=== PATIENT | female | born 1960 | race Caucasian/White ===

== ENCOUNTER 2017-09-16 10:22 | Inpatient (IN) | payer OTHER ==
[~2017-09-16] VITALS: Ht 170.2 cm; Wt 68.0 kg
--- NOTE | 2017-09-16 11:34 | ED GENERAL ADULT ---
History of Present Illness General Chief Complaint: ETOH/Drug Related Complaint Stated Complaint: REQUESTING DETOX FROM DEPRESSION MEDS Source: patient, family Exam Limitations: no limitations Vital Signs & Intake/Output Vital Signs & Intake/Output Vital Signs Date Time Temp Pulse Resp B/P B/P Pulse O2 O2 Flow FiO2 Mean Ox Delivery Rate 09/16 1026 97.2 92 18 180/92 95 Room Air Room Air Allergies Coded Allergies: Penicillins (Severe, ANAPHYLAXIS 08/10/17) Triage Note: PT TO ED " I WANT TO DETOX FROM LEXAPRO AND ALCOHOL". PT TRIED TO STOP ON HER OWN "BUT I TOOK SOME WINE THIS MORNING BECAUSE I WAS SHAKING SO MUCH". PT DENIES ETOH WITHDRAWL SEIZURES IN THE PAST. Triage Nurses Notes Reviewed? yes HPI: Patient has been drinking pretty steadily and wants to stop drinking. Patient also wants to get off of her Lexapro. Vision states that the only reason she is , supposed to help her stop drinking. Patient probably stopped her Lexapro a week ago and is now feeling very anxious and jittery and feels that there is "crawling all over her skin. Patient denies any history of DTs or seizures. Patient states that she has not eaten or drank anything in the past 4 days because of nausea. There is no vomiting. Patient denies any abdominal pain. Patient denies any suicidal or homicidal ideations. Past History Travel History Traveled to [place] past 21 day No Medical History Any Pertinent Medical History? 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 No Review of Systems Review of Systems Constitutional: Reports: no symptoms. EENTM: Reports: no symptoms. Respiratory: Reports: no symptoms. Cardiovascular: Reports: no symptoms. GI: Reports: see HPI, nausea. Genitourinary: Reports: no symptoms. Musculoskeletal: Reports: no symptoms. Skin: Reports: no symptoms. Neurological/Psychological: Reports: see HPI, anxiety. Hematologic/Endocrine: Reports: no symptoms. Immunologic/Allergic: Reports: no symptoms. All Other Systems: Reviewed and Negative Physical Exam Physical Exam General Appearance: well developed/nourished, alert, awake, anxious, moderate distress Head: atraumatic, normal appearance Eyes: Bilateral: PERRL, EOMI. Ears, Nose, Throat: normal pharynx, normal ENT inspection, hearing grossly normal Neck: normal inspection, supple, full range of motion Respiratory: normal breath sounds, chest non-tender, no respiratory distress, lungs clear Cardiovascular: regular rate/rhythm, normal peripheral pulses Gastrointestinal: normal bowel sounds, soft, non-tender, no organomegaly Back: normal inspection, normal range of motion Extremities: normal inspection, normal capillary refill, normal range of motion, no edema Neurologic/Psych: no motor/sensory deficits, awake, alert, oriented x 3, normal gait, normal mood/affect Skin: intact, normal color, warm/dry Lymphatic: no anterior cervical gaviota Core Measures ACS in differential dx? No CVA/TIA Diagnosis: No Sepsis Present: No Sepsis Focused Exam Completed? No Progress Differential Diagnoses I considered the following diagnoses in my evaluation of the patient: [ALCOHOL DEPENDENCY WITH WITHDRAWAL, ELECTROLYTE ABNORMALITY, ] Plan of Care: Orders Procedure Date/time Status Regular Diet 09/16 D Active CIWA 09/16 1130 Active ETHANOL 09/16 1130 Complete COMPREHENSIVE METABOLIC PANEL 09/16 1130 Complete CBC WITHOUT DIFFERENTIAL 09/16 1130 Complete URINE DRUG SCREEN FOR ER ONLY 09/16 1040 Complete Current Medications Sig/Chetna Start time Last Medication Dose Stop Time Status Admin Lorazepam 2 MG ONE ONE 09/16 1415 UNVr (Ativan) 09/16 1416 Lorazepam 2 MG ONCE ONE 09/16 1415 UNVr (Ativan) 09/16 1416 Gabapentin 300 MG Q8 09/16 1400 UNVr 09/16 (Neurontin) 1400 Clonidine 0.1 MG TID PRN 09/16 1130 UNVr (Catapres) Cyanocobalamin/ 1 BAG ONCE ONE 09/16 1130 AC 09/16 Thiamine/Pyridoxine 09/16 1929 1246 (Vitamin in I.V.) Dextrose/Water 1,000 ML (D5W 1000) Nicotine 2 MG Q2P PRN 09/16 1130 UNVr (Nicotine) Laboratory Tests 09/16/17 1202: Anion Gap 18 H, Estimated GFR > 60, BUN/Creatinine Ratio 14.3, Glucose 114 H, Calcium 9.5, Total Bilirubin 1.0, AST 243 H, ALT 105 H, Alkaline Phosphatase 194 H, Total Protein 7.8, Albumin 4.4, Globulin 3.4, Albumin/Globulin Ratio 1.3 , CBC w Diff NO MAN DIFF REQ, RBC 4.76, MCV 96.8, MCH 32.4 H, RDW 14.0, MPV 8.0 , Gran % 74.8, Lymphocytes % 19.0 L, Monocytes % 5.5, Eosinophils % 0.2, Basophils % 0.5, Absolute Granulocytes 8.4 H, Absolute Lymphocytes 2.1, Absolute Monocytes 0.6, Absolute Eosinophils 0, Absolute Basophils 0.1, PUBS MCHC 33.5, Serum Alcohol 67.0 09/16/17 1045: Urine Opiates Screen < 100.00, Methadone Screen 89, Barbiturate Screen < 60, Ur Phencyclidine Scrn < 6.00, Amphetamines Screen 118, U Benzodiazepines Scrn < 85, Urine Cocaine Screen < 50, Urine Cannabis Screen 6.00 Initial ED EKG: none Departure Departure Disposition: STILL A PATIENT Condition: Guarded Clinical Impression Primary Impression: Alcohol dependency Referrals: [facility],Minerva Rosado (PCP/Family) Departure Forms: Customer Survey General Discharge Information Admission Note Spoke With: Francine Kearney MD Documentation of Exam: Documentation of any treatments & extenuating circumstances including Concerns Regarding Discharge (functional status, medication knowledge or non-compliance, living conditions, etc.) that warrant an admission rather than observation: [ ATIVAN PER CIWA, ] Alcohol Withdrawl Admission ED Alcohol Detox Admission d/t: CIWA Score >15 Critical Care Note Critical Care Note Critical Care Time: non-applicable
[2017-09-16 12:19] LABS: ABSOLUTE BASOPHIL COUNT 0.1 /CUMM (0.0-0.2); ABSOLUTE EOSINOPHIL COUNT 0 /CUMM (0.0-0.7); ABSOLUTE GRANULOCYTE CT 8.4 /CUMM (1.4-6.5); ABSOLUTE LYMPH COUNT 2.1 /CUMM (1.2-3.4); ABSOLUTE MONOCYTE COUNT 0.6 /CUMM (0.10-0.60); BASOPHIL % 0.5 % (0.0-2.0); EOSINOPHIL % 0.2 % (0-5); GRANULOCYTE % 74.8 % (42.2-75.2); MEAN CORPUSCULAR HGB 32.4 PG (27.0-31.0); MEAN CORPUSCULAR HGB CONC 33.5 G/DL (33.0-37.0); MEAN CORPUSCULAR VOLUME 96.8 FL (81.0-99.0); PLATELET COUNT 261 /CUMM (130-400); RED BLOOD CELL CT 4.76 /CUMM (4.20-5.40); WHITE BLOOD CELL COUNT 11.2 /CUMM (4.8-10.8)
--- NOTE | 2017-09-16 14:47 | History & Physical ---
Sha ROBERTO,[facility] 09/16/17 1446: General Information and HPI MD Statement: I have seen and personally examined KANDY FRAZIER and documented this H&P. The patient is a 56 year old F who presented with a patient stated chief complaint of [alcohol detox]. Source of Information: patient, EMS Exam Limitations: no limitations History of Present Illness: Patient is a 56-year-old female with past medical history significant for hypertension, HOCM (follows ), urinary incontinence, varicose veins, HOCM presented to [facility] requesting alcohol detox this morning. Patient started drinking since the age of 17 years and never had any alcohol withdrawals are hospitalizations in the past. She only stopped drinking during her and her usual drinking consists of vodka around 16 ounces per day. Her last drink yesterday morning (wine). She was started on Lexapro for depression/ anxiety 3 months ago by her primary care physician. She stopped taking it for the past 5 days and restarted today morning. She started feeling loopy and came to the ER for detoxification. She often feels guilty about her drinking, drugs to control her drinking, annoyed by criticism about her drinking. (CAGE positive) PMH significant for HOCM on bystolic, follows . She reportedly had elevated liver function tests during her routine workup by her primary care physician but never evaluated further with hepatitis panel or any alcohol related conditions like steatosis. Patient is very drowsy during the encounter. Her mother is alcoholic Socially she smokes around half pack per day for the past 40 years. Denies any drug abuse Surgically she had left hip replacement due to osteoarthritis 2 years ago Allergies/Medications Allergies: Coded Allergies: Penicillins (Severe, ANAPHYLAXIS 08/10/17) Home Med list Nebivolol HCl (Bystolic) 5 MG TABLET 1 TAB PO DAILY hypertension (Reported) Oxybutynin Chloride (Oxybutynin Chloride ER) 10 MG TAB.ER.24 1 TAB PO DAILY urinary incontinence (Reported) Compliance With Home Meds: UNKNOWN Past History Travel History Traveled to [place] past 21 day No Medical History Neurological: NONE EENT: NONE Cardiovascular: hypertension Respiratory: NONE Gastrointestinal: NONE Hepatic: NONE Renal: NONE Musculoskeletal: right rib fracture Psychiatric: depression Endocrine: NONE Blood Disorders: NONE Cancer(s): NONE 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 Ambulation: independent IADLs Independent: shopping, housework, finances, food prep, telephone, transportation , medication admin. Review of Systems Review of Systems Constitutional: Reports: see HPI. EENTM: Reports: see HPI. Comments ROS negative except above Exam & Diagnostic Data Last 24 Hrs of Vital Signs/I&O Vital Signs Date Time Temp Pulse Resp B/P B/P Pulse O2 O2 Flow FiO2 Mean Ox Delivery Rate 09/16 1431 98.6 82 18 180/90 96 Room Air 09/16 1026 97.2 92 18 180/92 95 Room Air Room Air Intake & Output 09/16 1600 09/16 0800 09/16 0000 Intake Total Output Total Balance Patient 68.039 kg Weight Weight Reported by Patient Measurement Method Physical Exam General Appearance Alert, Oriented X3, drowsy Skin No Rashes, No Breakdown Skin Temp/Moisture Exam: Warm/Dry HEENT Atraumatic, PERRLA, EOMI Neck Supple, No JVD Cardiovascular Normal S1, Normal S2 Lungs Clear to Auscultation, Normal Air Movement Abdomen Normal Bowel Sounds, No Tenderness, distended, mild hepatomegaly Neurological Normal Gait, Normal Speech Extremities No Clubbing, No Cyanosis, No Edema Vascular Pulses Symmetrical Last 24 Hrs of Labs/Howie: Laboratory Tests 09/16/17 1202: Anion Gap 18 H, Estimated GFR > 60, BUN/Creatinine Ratio 14.3, Glucose 114 H, Calcium 9.5, Total Bilirubin 1.0, AST 243 H, ALT 105 H, Alkaline Phosphatase 194 H, Total Protein 7.8, Albumin 4.4, Globulin 3.4, Albumin/Globulin Ratio 1.3 , CBC w Diff NO MAN DIFF REQ, RBC 4.76, MCV 96.8, MCH 32.4 H, RDW 14.0, MPV 8.0 , Gran % 74.8, Lymphocytes % 19.0 L, Monocytes % 5.5, Eosinophils % 0.2, Basophils % 0.5, Absolute Granulocytes 8.4 H, Absolute Lymphocytes 2.1, Absolute Monocytes 0.6, Absolute Eosinophils 0, Absolute Basophils 0.1, PUBS MCHC 33.5, Serum Alcohol 67.0 09/16/17 1045: Urine Opiates Screen < 100.00, Methadone Screen 89, Barbiturate Screen < 60, Ur Phencyclidine Scrn < 6.00, Amphetamines Screen 118, U Benzodiazepines Scrn < 85, Urine Cocaine Screen < 50, Urine Cannabis Screen 6.00 Assessment/Plan Assessment: Patient is a 56-year-old female with significant alcohol history for the past 40 years, active smoker, presented to [place] requesting alcohol detoxification. She never had history of seizures in the past/never admitted for alcohol detoxification. Vital signs at admission are afebrile, heart rate 90, blood pressure 180/90 mmHg , saturating 95% on room air. Physical examination is unremarkable except for abdominal distention with mild hepatomegaly. Tremors present. Labs - white count of 11.2, H&H 15/46, MCV 96. Sodium 142, potassium 3.8, anion gap 18, AST/ALT 243/105 (2 wish to 1), alkaline phosphatase 194. Augmentin 4.4. Toxic screen shows serum alcohol level of 67. UA is pending Patient is very drowsy - CMR need to be confirmed Admitted to general medicine floor Alcohol detoxification CIWA protocol with scheduled and as needed ativan dosing. Clonidine for high blood pressure during withdrawal. Folic acid, multivitamin, thiamine. Hepatitis panel, social and psychiatric consult. Transaminitis AST/ALT induced 1 ratio secondary to significant alcohol consumption. We will trend the LFTs. Right upper quadrant ultrasound to rule out hepatic steatosis. Nothing by mouth from midnight. History of HOCM and HTN Patient was on Bystolic at home, we will continue that for now. History of urinary incontinence Cotinue oxybutynin 10mg ER daily. DVT prophylaxis Subcutaneous Lovenox CODE STATUS Full code As Ranked By This Provider Problem List: 1. Alcohol dependency Core Measures/Misc (05/14) Acute Coronary Syndrome ACS Diagnosis: No Congestive Heart Failure Congestive Heart Failure Diagnosis No Cerebrovascular Accident CVA/TIA Diagnosis: No VTE (View Protocol) VTE Risk Factors Acute Medical Illness No Mechanical VTE Prophylaxis d/t N/A MechProphylax Ordered No VTE Pharm Prophylaxis d/t NA PharmProphylax ordered Sepsis (View protocol) Sepsis Present: No Resident Review Statement Resident Statement: examined this patient, discussed with hospitality internship, agreed with hospitality internship, discussed with family, reviewed EMR data (avail), discussed with nursing , discussed with case mgmt, reviewed images, amended to note Francine Kearney 09/16/17 1515: Attending MD Review Statement Attending Statement Attending MD Statement: examined this patient, discuss w/resident/PA/WELDER HELPER, agreed w/resident/PA/WELDER HELPER, discussed with family, reviewed EMR data (avail), discussed with nursing, discussed with case mgmt, reviewed images, amended to note Attending Assessment/Plan: 56 o/f with pmh of alcohol abuse, hypertension comes with altered mental status 2/2 delirium related to alcohol withdrawal and admitted to inpatient medical services for alcohol withdrawal impending delirium tremens with moderate transaminits. Patient NIKKY 67 with tremors, BP in elevation range with uncontrolled hypertension, tremors. Patient started on CIWA protocol, ativan as per CIWA, thiamine, folic acid, IVF, bp control. Closely monitor hemodynamics. Obtain previous records. and [facility] eval. gi/dvt prophylaxis full code.
[2017-09-16 16:10] VITALS: BP 160/90
[2017-09-16 17:33] VITALS: BP 180/92
[2017-09-16 17:51] VITALS: BP 150/90
[2017-09-16] MEDS ORDERED: BYSTOLIC5 M1 PO (21:47)
[2017-09-16 22:00] VITALS: BP 150/90
[2017-09-16 22:15] VITALS: BP 150/90
[2017-09-17] VITALS (7 sets, daily range): BP systolic 120–140; BP diastolic 60–80
--- NOTE | 2017-09-17 09:05 | ULTRASOUND REPORT ---
EXAMINATION: US ABDOMEN LIMITED CLINICAL INFORMATION: Right upper quadrant pain. COMPARISON: None TECHNIQUE: Real-time imaging of the right upper quadrant abdominal viscera. FINDINGS: PANCREAS: Normal. LIVER: The liver is enlarged measuring 19.9 cm in length.. The liver demonstrates normal size, contour and increased echogenicity. No focal lesion or intrahepatic biliary duct dilatation. GALLBLADDER: Normal. The gallbladder is physiologically distended without evidence of stones, sludge, polyps, wall thickening or pericholecystic fluid. COMMON BILE DUCT: Normal in caliber measuring 0.5 cm in diameter. RIGHT KIDNEY: Normal. No hydronephrosis. No renal calculi or focal parenchymal lesions. The kidney measures 11.4 cm in maximum dimension. FREE FLUID: None. IMPRESSION: Echogenic significantly enlarged liver but no focal lesion or intrahepatic ductal dilatation. Findings could be secondary to hepatitis or fatty infiltration. Unremarkable visualized right kidney, CBD, gallbladder and the pancreas.
--- NOTE | 2017-09-17 09:55 | PN- Housestaff ---
Zulay ROBERTO,Corazon 09/17/17 0955: Subjective Follow-up For: ALCOHOL DETOX TRANSAMINITIS HTN Subjective: PATIENT IS STILL DROWSY BUT IS APPROPRIATE. DOES NOT COMPLAIN OF ABDOMINAL PAIN OR CHEST PAIN. NO SOB. VITALS STABLE 92% ON RA. Review of Systems Constitutional: Reports: no symptoms. Neurological/Psychological: Reports: anxiety, depressed. Objective Last 24 Hrs of Vital Signs/I&O Vital Signs Date Time Temp Pulse Resp B/P B/P Pulse O2 O2 Flow FiO2 Mean Ox Delivery Rate 09/17 0954 97.4 73 20 120/60 92 Room Air 09/17 0907 97.6 89 20 120/80 09/17 0720 97.6 89 20 120/80 94 Room Air 09/17 0612 89 120/80 09/17 0600 97.6 89 20 120/80 09/17 0240 97.8 89 20 124/80 95 Room Air 09/17 0200 97.8 89 20 124/80 09/16 2303 85 150/90 09/16 2301 85 150/90 09/16 2215 98.2 85 20 150/90 92 Room Air 09/16 2200 98.2 85 20 150/90 09/16 1751 98.5 86 20 150/90 91 Room Air 09/16 1733 97.9 96 18 180/92 09/16 1732 97.9 96 18 180/92 96 Room Air 09/16 1730 97.9 96 18 180/92 09/16 1610 98.6 96 18 160/90 09/16 1608 98.6 96 18 160/90 96 Room Air 09/16 1431 98.6 82 18 180/90 96 Room Air Intake & Output 09/17 1600 09/17 0800 09/17 0000 Intake Total 70 1515 Output Total 250 Balance 70 1265 Intake, IV 10 1000 Intake, Oral 60 515 Output, Urine 250 Patient 150 lb Weight Weight Reported by Patient Measurement Method Physical Exam General Appearance: Alert, Oriented X3, Cooperative, No Acute Distress Skin: No Rashes Skin Temp/Moisture Exam: Warm/Dry HEENT: Atraumatic, PERRLA, EOMI, Mucous Membr. moist/pink Cardiovascular: Regular Rate, Normal S1, Normal S2 Lungs: Clear to Auscultation, Normal Air Movement Abdomen: Normal Bowel Sounds, Soft, No Hepatospenomegaly, No Masses, SOME DISTENSION AND VERY MILD PAIN ON PALPATION UPPER RIGHT QUADRANT Neurological: Normal Speech Current Medications: Current Medications Sig/Chetna Start time Last Medication Dose Route Stop Time Status Admin Clonidine 0.1 MG Q8 09/17 1400 AC PO Clonidine 0.1 MG Q6 09/16 1928 DC 09/17 PO 0612 Clonidine 0 .STK-MED ONE 09/16 1724 DC PO Clonidine 0.1 MG TID PRN 09/16 1130 DC 09/16 PO 1730 Cyanocobalamin/ 1 BAG ONCE ONE 09/16 1500 CAN Thiamine/Pyridoxine IV 09/16 2259 Dextrose/Water 1,000 ML Cyanocobalamin/ 1 BAG ONCE ONE 09/16 1130 DC 09/16 Thiamine/Pyridoxine IV 09/16 1929 1246 Dextrose/Water 1,000 ML Enoxaparin Sodium 0 .STK-MED ONE 09/16 1724 DC SC Enoxaparin Sodium 40 MG DAILY 09/16 1450 AC 09/17 SC 0907 Folic Acid 1 MG DAILY 09/17 1000 AC 09/17 PO 0907 Folic Acid 1 MG DAILY 09/16 1527 DC PO Gabapentin 300 MG Q8 09/16 1400 AC 09/17 PO 0612 Gabapentin 0 .STK-MED ONE 09/16 1311 DC PO Gabapentin 300 MG ONCE ONE 09/16 1300 DC 09/16 PO 09/16 1301 1310 Influenza Virus 0.5 ML ONCE ONE 09/16 1815 DC Vaccine IM 09/16 1816 Lorazepam 1.5 MG Q6H 09/17 1500 DC PO Lorazepam 1 MG Q6H 09/17 1500 AC PO Lorazepam See Dose Q1P PRN 09/16 1500 AC Insts (1) IV Lorazepam 2 MG Q6H 09/16 1500 DC 09/17 PO 0909 Lorazepam 0 .STK-MED ONE 09/16 1417 DC .ROUTE Lorazepam 0 .STK-MED ONE 09/16 1416 DC PO Lorazepam 2 MG ONE ONE 09/16 1415 DC 09/16 IV 09/16 1416 1432 Lorazepam 2 MG ONCE ONE 09/16 1415 DC 09/16 PO 09/16 1416 1432 Magnesium Oxide 400 MG BID 09/17 1233 UNVr PO 09/17 220 Multivitamins 1 TAB DAILY 09/17 1000 AC 09/17 PO 0908 Nebivolol 5 MG DAILY 09/16 2200 AC 09/17 PO 0907 Nicotine 2 MG Q2P PRN 09/16 1130 AC PO Oxybutynin Chloride 10 MG DAILY 09/17 1232 UNVr PO Potassium Chloride 40 MEQ ONCE ONE 09/17 1245 UNVr PO 09/17 1246 Thiamine HCl 100 MG DAILY 09/17 1000 AC 09/17 PO 0908 Dose Instructions: (1)Lorazepam: See admin criteria Last 24 Hrs of Lab/Howie Results Last 24 Hrs of Labs/Mics: Laboratory Tests 09/17/17 0818: Anion Gap 13, Estimated GFR > 60, BUN/Creatinine Ratio 13.8, Phosphorus 3.6, Magnesium 1.7, Total Bilirubin 1.7 H, Direct Bilirubin 0.7 H, AST 144 H, ALT 75 H, Alkaline Phosphatase 156 H, Total Protein 6.6, Albumin 3.6, Hepatitis A IgM Ab NONREACTIVE, Hep Bs Antigen NONREACTIVE, Hep B Core IgM Ab Conf NONREACTIVE, Hepatitis C Antibody NONREACTIVE Orders CIWA Score (last 24 hrs): 3 FOR HEADACHES AND TREMORS Assessment/Plan Assessment: Patient is a 56-year-old female with significant alcohol history for the past 40 years, active smoker, hypertension, HOCM (follows ), urinary incontinence, varicose veins, presented to [facility] requesting alcohol detox. She never had history of seizures in the past/never admitted for alcohol detoxification. Vital signs at admission are afebrile, heart rate 90, blood pressure 180/90 mmHg , saturating 95% on room air. Physical examination is unremarkable except for abdominal distention with mild hepatomegaly. Tremors present. Labs - white count of 11.2, H&H 15/46, MCV 96. Sodium 142, potassium 3.8, anion gap 18, AST/ALT 243/105 (2 wish to 1), alkaline phosphatase 194. Augmentin 4.4. Toxic screen shows serum alcohol level of 67. UA is pending Admitted to general medicine floor FOR: Alcohol detoxification CIWA protocol with scheduled and as needed ativan dosing. Clonidine for high blood pressure during withdrawal. Folic acid, multivitamin, thiamine. Hepatitis panel, social and psychiatric consult. -CIWA 3 TODAY FOR HEADACHES AND TREMORS -NOTE THAT CLONIDINE MAY MASK SYMPTOMS OF WITHDRAWAL -CONTINUE ATIVAN DOSING CIWA PROTOCOL AND DECREASE 1.5MG Q6 TODAY AT 3PM TO 1.0MG Q6 -FOLIC ACID, THIAMINE, MULTIVIT, VIT B Transaminitis AST/ALT induced 1 ratio secondary to significant alcohol consumption. We will trend the LFTs. Right upper quadrant ultrasound SHOWED SIGNIFICAANTLY ENLARGED LIVER BUT NO FOCAL LESION OR INTRAHEPATIC DUCTAL DILATATION- EVIDENCE OF HEPATATIS OR FATTY INFILTRATION. LFTS ARE RESOLVING AST 144 DOWN FROM 243 ALT 75 DOWN FROM 105. AP 156 DOWN FROM 194. History of HOCM and HTN Patient was on Bystolic at home, we will continue that for now. History of urinary incontinence Cotinue oxybutynin 10mg ER daily. HYPERKALEMIA, MAGNESIUM LEVELS REPLETE, 3.3 KEEP MG NEAR 2 DVT prophylaxis Subcutaneous Lovenox CODE STATUS Full code Problem List: 1. Alcohol dependency Pain Ratin Pain Location: RIGHT UPPER QUANDRANT ON PALPATION Pain Goal: Remain pain free Pain Plan: PRN Tomorrow's Labs & Rationales: CBC BEP Francine Kearney 09/17/17 0956: Attending MD Review Statement Attending Statement Attending MD Statement: examined this patient, discuss w/resident/PA/DISTRIBUTION OPERATION SUPERVISOR, agreed w/resident/PA/DISTRIBUTION OPERATION SUPERVISOR, discussed with family, reviewed EMR data (avail), discussed with nursing, discussed with case mgmt, reviewed images, amended to note Attending Assessment/Plan: 56 o/f with pmh of alcohol abuse, hypertension comes with altered mental status 2/2 delirium related to alcohol withdrawal and admitted to inpatient medical services for alcohol withdrawal impending delirium tremens with moderate transaminits. Patient NIKKY 67 with tremors, BP in elevation range with uncontrolled hypertension, tremors. Patient seen/examined bedside. Patient is sleeping comfortably, not in acute distress. Continue on CIWA protocol, ativan as per CIWA, thiamine, folic acid, IVF, bp control. Closely monitor hemodynamics. f/u previous records. and [facility] eval. gi/dvt prophylaxis full code.
--- NOTE | 2017-09-17 10:31 | IP INCIDENTAL NOTE PSYCH ---
Incidental Note Notation: 56 year old female presenting to the ED with alcohol withdrawal, history of depression, self discontinued Lexapro about a week ago because she felt it should be helping with her alcohol withdrawal and it was not. Discussed with Dr. Biswas of the medical team. Consult requested place by for attending Dr Escamilla. Consult question: Please make record recommendations for depression medications, assess underlying contribution to drinking, outpatient treatment reccs? Per team, this is nonurgent and can wait till Monday morning to address, at this time patient is still undergoing acute withdrawal and not amenable to full interview, quite sedated today. Chart, labs and plan reviewed with summer intern. -cont CIWA, ativan, vs, MVI, folate, thiamine as you are doing -will cont to hold lexapro at this time since self-dc over a week ago -no SI endorsed, if presents, please place sitter with pt for safety -please add TSH/reflex T4, B12, RPR/VDRL to labs -Psychiatry C/L team to see pt on Monday -plan d/w medical team -mike call with questions, concerns
[2017-09-17] MEDS ORDERED: OXYBUTYNIN CHLO10 M1 PO (12:31)
[2017-09-18] VITALS (14 sets, daily range): BP systolic 110–180; BP diastolic 68–102
[2017-09-18 10:26] LABS: ABSOLUTE BASOPHIL COUNT 0 /CUMM (0.0-0.2); ABSOLUTE EOSINOPHIL COUNT 0.1 /CUMM (0.0-0.7); ABSOLUTE GRANULOCYTE CT 3.9 /CUMM (1.4-6.5); ABSOLUTE LYMPH COUNT 2.5 /CUMM (1.2-3.4); ABSOLUTE MONOCYTE COUNT 0.4 /CUMM (0.10-0.60); BASOPHIL % 0.4 % (0.0-2.0); EOSINOPHIL % 1.8 % (0-5); GRANULOCYTE % 55.8 % (42.2-75.2); MEAN CORPUSCULAR HGB 33.1 PG (27.0-31.0); MEAN CORPUSCULAR HGB CONC 33.9 G/DL (33.0-37.0); MEAN CORPUSCULAR VOLUME 97.7 FL (81.0-99.0); MEAN PLATELET VOLUME 8.8 FL (7.4-10.4); PLATELET COUNT 163 /CUMM (130-400); RBC DISTRIBUTION WIDTH 13.9 % (11.5-14.5); RED BLOOD CELL CT 3.89 /CUMM (4.20-5.40); WHITE BLOOD CELL COUNT 7.1 /CUMM (4.8-10.8)
--- NOTE | 2017-09-18 11:17 | PN- Housestaff ---
Zulay ROBERTO,Corazon 09/18/17 1116: Subjective Follow-up For: ALCOHOL DETOX TRANSAMINITIS HTN Subjective: overnight patient had CIWA of 2 for visual and auditory hallucinations. She states that she thinks the bed looks like two shoulders next to her. she states that she is still lightheaded, seeing double, and has a headache. she admits to diaphoresis as well. Also states she has a little bit of diarrhea. Review of Systems Constitutional: Reports: diaphoresis, weakness. EENTM: Reports: double vision. Cardiovascular: Reports: no symptoms. Gastrointestinal: Reports: diarrhea. Musculoskeletal: Reports: no symptoms. Neurological/Psychological: Reports: see HPI, cognitive dysfunction, headache. Objective Last 24 Hrs of Vital Signs/I&O Vital Signs Date Time Temp Pulse Resp B/P B/P Pulse O2 O2 Flow FiO2 Mean Ox Delivery Rate 09/18 1001 98.1 68 20 118/68 09/18 0647 98.1 68 20 118/68 92 Room Air 09/18 0552 68 158/78 09/18 0545 98.7 68 20 158/78 09/18 0200 98.5 76 20 110/70 94 Room Air 09/17 2228 75 132/80 09/17 2200 96.9 75 20 132/80 92 Room Air 09/17 1428 98.5 81 20 140/80 09/17 1357 98.5 81 20 140/80 93 Room Air Intake & Output 09/18 1600 09/18 0800 09/18 0000 Intake Total 100 200 Output Total Balance 100 200 Intake, Oral 100 200 Physical Exam General Appearance: Alert, Oriented X3, Cooperative, No Acute Distress Skin: No Rashes, No Breakdown, No Significant Lesion HEENT: Atraumatic, PERRLA, EOMI Neck: Supple, No JVD Cardiovascular: Regular Rate, Normal S1, Normal S2, No Murmurs Lungs: Clear to Auscultation Abdomen: Normal Bowel Sounds, Soft, No Tenderness Neurological: Normal Speech, Strength at 5/5 X4 Ext, Normal Tone, Sensation Intact, Cranial Nerves 3-12 NL Extremities: No Clubbing, No Edema, Normal Pulses, No Tenderness/Swelling Vascular: Normal Pulses Current Medications: Current Medications Sig/Chetna Start time Last Medication Dose Route Stop Time Status Admin Clonidine 0.1 MG Q12P PRN 09/18 1000 AC PO Clonidine 0.1 MG Q8 09/17 1400 DC 09/18 PO 0552 Enoxaparin Sodium 40 MG DAILY 09/16 1450 AC 09/18 SC 1002 Folic Acid 1 MG DAILY 09/17 1000 AC 09/18 PO 1001 Gabapentin 300 MG Q8 09/16 1400 AC 09/18 PO 0551 Lorazepam 1 MG BID 09/18 2199 UNVr PO Lorazepam 1 MG Q6H 09/17 1500 DC 09/18 PO 1000 Lorazepam See Dose Q1P PRN 09/16 1500 AC 09/18 Insts (1) IV 0551 Magnesium Oxide 400 MG BID 09/17 1233 DC 09/17 PO 09/17 2200 2229 Multivitamins 1 TAB DAILY 09/17 1000 AC 09/18 PO 1004 Nebivolol 5 MG DAILY 09/16 2200 AC 09/18 PO 1001 Nicotine 2 MG Q2P PRN 09/16 1130 AC 09/18 PO 1002 Oxybutynin Chloride 5 MG BID 09/17 1232 AC 09/18 PO 1001 Potassium Chloride 40 MEQ ONCE ONE 09/17 1245 DC 09/17 PO 09/17 1246 1428 Thiamine HCl 100 MG DAILY 09/17 1000 AC 09/18 PO 1001 Dose Instructions: (1)Lorazepam: See admin criteria Last 24 Hrs of Lab/Howie Results Last 24 Hrs of Labs/Mics: Laboratory Tests 09/18/17 0952: Total Bilirubin 1.2, Direct Bilirubin 0.5 H, AST 118 H, ALT 72 H, Alkaline Phosphatase 153 H, Total Protein 6.4, Albumin 3.6 09/18/17 0805: Anion Gap 11, Estimated GFR > 60, BUN/Creatinine Ratio 21.7, Phosphorus 3.4, Magnesium 1.6, CBC w Diff NO MAN DIFF REQ, RBC 3.89 L, MCV 97.7, MCH 33.1 H, RDW 13.9, MPV 8.8, Gran % 55.8, Lymphocytes % 36.1, Monocytes % 5.9, Eosinophils % 1.8, Basophils % 0.4, Absolute Granulocytes 3.9, Absolute Lymphocytes 2.5, Absolute Monocytes 0.4, Absolute Eosinophils 0.1, Absolute Basophils 0, PUBS MCHC 33.9 Orders CIWA Score (last 24 hrs): 2 Assessment/Plan Assessment: Patient is a 56-year-old female with significant alcohol history for the past 40 years, active smoker, hypertension, HOCM (follows ), urinary incontinence, varicose veins, presented to [facility] requesting alcohol detox. She never had history of seizures in the past/never admitted for alcohol detoxification. Vital signs at admission are afebrile, heart rate 90, blood pressure 180/90 mmHg , saturating 95% on room air. Physical examination is unremarkable except for abdominal distention with mild hepatomegaly. Tremors present. Labs - white count of 11.2, H&H 15/46, MCV 96. Sodium 142, potassium 3.8, anion gap 18, AST/ALT 243/105 (2 wish to 1), alkaline phosphatase 194. Augmentin 4.4. Toxic screen shows serum alcohol level of 67. UA is pending Admitted to general medicine floor FOR: Alcohol detoxification CIWA protocol with scheduled and as needed ativan dosing. Clonidine for high blood pressure during withdrawal. -CIWA 2 TODAY FOR AUDITORY AND VISUAL HALLUCINATIONS -NOTE THAT CLONIDINE MAY MASK SYMPTOMS OF WITHDRAWAL -CONTINUE ATIVAN DOSING CIWA PROTOCOL AND DECREASE 1MG Q6 TODAY TO 1.0MG Q12 -FOLIC ACID, THIAMINE, MULTIVIT, VIT B -SOCIAL WORK AND PSYCHIATRY TODAY FOR OUTPATIENT PLACEMENT. Transaminitis AST/ALT induced 1 ratio secondary to significant alcohol consumption. We will trend the LFTs. Right upper quadrant ultrasound SHOWED SIGNIFICAANTLY ENLARGED LIVER BUT NO FOCAL LESION OR INTRAHEPATIC DUCTAL DILATATION- EVIDENCE OF HEPATATIS OR FATTY INFILTRATION. NEGATIVE HEPATITIS PANEL LFT ELEVATIONS ARE RESOLVING History of HOCM and HTN Patient was on Bystolic at home, we will continue that for now. History of urinary incontinence Cotinue oxybutynin 10mg ER daily. HYPERKALEMIA, HYPOMAGNESEMIA REPLETE NEEDED TO KEEP K AT LEAST 4 AND MG AT LEAST 2 DVT prophylaxis Subcutaneous Lovenox CODE STATUS Full code Problem List: 1. Alcohol dependency Pain Ratin Pain Location: na Pain Goal: Remain pain free Pain Plan: prn Tomorrow's Labs & Rationales: bep cbc Francine Kearney 09/18/17 1332: Attending MD Review Statement Attending Statement Attending MD Statement: examined this patient, discuss w/resident/PA/UNDERWATER WELDER, agreed w/resident/PA/UNDERWATER WELDER, discussed with family, reviewed EMR data (avail), discussed with nursing, discussed with case mgmt, reviewed images, amended to note Attending Assessment/Plan: 56 o/f with pmh of alcohol abuse, hypertension comes with altered mental status 2/2 delirium related to alcohol withdrawal and admitted to inpatient medical services for alcohol withdrawal impending delirium tremens with moderate transaminits. Patient NIKKY 67 with tremors, BP in elevation range with uncontrolled hypertension, tremors. Patient seen/examined bedside. Patient is sleeping comfortably, not in acute distress. Continue on CIWA protocol, taper ativan as per CIWA, thiamine, folic acid, IVF, bp control. Closely monitor hemodynamics. f/u previous records. and [facility] eval pending. gi/dvt prophylaxis full code.
--- NOTE | 2017-09-18 17:21 | Cons- Psychiatry ---
See Addendum Psychiatric Consult Date of Consult: 09/18/17 Reason for Consult: alcohol withdrawal History of Present Illness: 56 F BIB spouse, Donovan, 09/16/17 @ 1028 with a CC of wanting "to detox from alcohol and Lexipro." She had told her PCP that she did not want to take benzodiazepines, and agreed to taper off alcohol and use Lexapro 10 mg PO daily for her anxiety, which she has since stopped unilaterally. She reports that she stopped drinking 22 years ago when her son was born, but has not since that time. She denies any history of seizure or delirium tremens, but her spouse reports that when she was drinking at her father's house on Monday, family had called him to report that she was seeing things. Allergies: Coded Allergies: Penicillins (Severe, ANAPHYLAXIS 08/10/17) Current Medications: Current Medications Sig/Chetna Start time Last Medication Dose Route Stop Time Status Admin Clonidine 0.1 MG Q12P PRN 09/18 1000 AC PO Clonidine 0.1 MG Q8 09/17 1400 DC 09/18 PO 0552 Enoxaparin Sodium 40 MG DAILY 09/16 1450 AC 09/18 SC 1002 Folic Acid 1 MG DAILY 09/17 1000 AC 09/18 PO 1001 Gabapentin 300 MG Q8 09/16 1400 AC 09/18 PO 1443 Lorazepam 0.5 MG Q6 09/21 0600 AC PO 09/22 1201 Lorazepam 1 MG Q6 09/19 2359 AC PO 09/21 0000 Lorazepam 1 MG BID 09/18 2200 CAN PO Lorazepam 1.5 MG Q6 09/18 1800 AC PO 09/19 1801 Lorazepam 1 MG Q6H 09/17 1500 DC 09/18 PO 1000 Lorazepam See Dose Q1P PRN 09/16 1500 AC 09/18 Insts (1) IV 0551 Magnesium Oxide 400 MG BID 09/18 2200 AC PO 09/19 1001 Magnesium Oxide 400 MG BID 09/17 1233 DC 09/17 PO 09/17 220 2229 Multivitamins 1 TAB DAILY 09/17 1000 AC 09/18 PO 1004 Nebivolol 5 MG DAILY 09/16 2200 AC 09/18 PO 1001 Nicotine 2 MG Q2P PRN 09/16 1130 AC 09/18 PO 1002 Oxybutynin Chloride 5 MG BID 09/17 1232 AC 09/18 PO 1001 Potassium Chloride 40 MEQ ONCE ONE 09/18 1900 AC PO 09/18 1901 Potassium Chloride 40 MEQ ONCE ONE 09/18 1630 DC PO 09/18 1631 Thiamine HCl 100 MG DAILY 09/17 1000 AC 09/18 PO 1001 Dose Instructions: (1)Lorazepam: See admin criteria Past History Past Medical History Neurological: NONE EENT: NONE Cardiovascular: hypertension Respiratory: NONE Gastrointestinal: NONE Hepatic: NONE Renal: NONE Musculoskeletal: right rib fracture Psychiatric: alcohol dependence, anxiety, depression Endocrine: NONE Blood Disorders: NONE Cancer(s): NONE 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 Supportive family Physical Limitations (Interventions): None Psychiatric Treatment History Psych Treatment Psychiatric Treatment No (Denies) Diagnosis: F10.20 Alcohol use disorder, severe Risk Factors: substance abuse Substance Use/Abuse History Drug Use/Abuse Substances Used/Abused Yes Substance Used/Abused Alcohol First Use Not evaluated, but at least 23 years ago, per spouse Last Used COLLATOR HAND How much used/taken 16 oz vodka and 2 glasses of wine daily. How often DAily For how long 20+ years Substance Abuse Treatment Substance Abuse Treatment Past Substance Abuse [place] No Assessment/Plan Mental Status Orientation: Person, Place, Situation Affect: Anxious Speech: Hyper-verbal Neuro-vegetative: Appetite Decreased, Sleep Disturbance Mental Status Exam: Alert, oriented. She offers joking responses to some questions. Denies AHG, VH or TH; presents no amando delusions, but had some confusion differentiating between events on Monday and last night; corrected by her spouse. She denies SI or HI and denies any hsitory of suicide attempt. She denies use of other drugs, including cannabis. Sleep at home has decreased to 6-7 hours, "When the drinking didn't do it." Insight and judgement are moderate. Lab Results: Laboratory Tests 09/18 09/18 09/18 1614 UNK 0952 Chemistry Total Bilirubin (0.2 - 1.3 mg/dL) 1.2 Direct Bilirubin (< 0.4 mg/dL) 0.5 H AST (14 - 36 U/L) 118 H ALT (9 - 52 U/L) 72 H Alkaline Phosphatase (<127 U/L) 153 H Total Protein (6.3 - 8.2 g/dL) 6.4 Albumin (3.5 - 5.0 g/dL) 3.6 Vitamin B12 Cancelled Serology RPR Titer/FTA Pending 09/18 08 Chemistry Sodium (137 - 145 mmol/L) 140 Potassium (3.5 - 5.1 mmol/L) 3.0 L Chloride (98 - 107 mmol/L) 104 Carbon Dioxide (22 - 30 mmol/L) 25 Anion Gap (5 - 16) 11 BUN (7 - 17 mg/dL) 13 Creatinine (0.5 - 1.0 mg/dL) 0.6 Estimated GFR (>60 ml/min) > 60 BUN/Creatinine Ratio (7 - 25 %) 21.7 Phosphorus (2.5 - 4.5 mg/dL) 3.4 Magnesium (1.6 - 2.3 mg/dL) 1.6 Vitamin B12 (239 - 931 pg/mL) Pending Hematology CBC w Diff NO MAN DIFF REQ WBC (4.8 - 10.8 /CUMM) 7.1 RBC (4.20 - 5.40 /CUMM) 3.89 L Hgb (12.0 - 16.0 G/DL) 12.9 Hct (37 - 47 %) 38.0 MCV (81.0 - 99.0 FL) 97.7 MCH (27.0 - 31.0 PG) 33.1 H RDW (11.5 - 14.5 %) 13.9 Plt Count (130 - 400 /CUMM) 163 MPV (7.4 - 10.4 FL) 8.8 Gran % (42.2 - 75.2 %) 55.8 Lymphocytes % (20.5 - 51.1 %) 36.1 Monocytes % (1.7 - 9.3 %) 5.9 Eosinophils % (0 - 5 %) 1.8 Basophils % (0.0 - 2.0 %) 0.4 Absolute Granulocytes (1.4 - 6.5 /CUMM) 3.9 Absolute Lymphocytes (1.2 - 3.4 /CUMM) 2.5 Absolute Monocytes (0.10 - 0.60 /CUMM) 0.4 Absolute Eosinophils (0.0 - 0.7 /CUMM) 0.1 Absolute Basophils (0.0 - 0.2 /CUMM) 0 PUBS MCHC (33.0 - 37.0 G/DL) 33.9 Diffential Diagnosis: F10.20 Alcohol use disorder, severe Impression: This is the first alcohol detox that the patient has attempted in 22 years. She had been started on the "ETOH Detox" protocol, which was accelerated today. The patient is reporting some discomfort; CIWA scores are mildly increased. After discussion with Dr. Kearney, we will assume responsibility for the lorazepam taper protocol, which we will restart on Day 2, or lorazepam 1.5 mg PO every 6 hours for 5 doses. The balance of the taper has been ordered, but we will review this daily, as we do not know the patient's reponse to alcohol withdrawal yet. Provisional Treatment Plan: 1. ETOH Detox protocol restarted as of today at 1800 at lorazepam 1.5 mg PO every 6 hours for 5 doses, with the balance of the protocol also ordered. Hold for oversedation or respiratory depression, but do not hold for sleep; please awaken the patient. As needed lorazepam dosing per the CIWA protocol. 2. Continue daily thiamine 100 mg, multivitamin and folic acid 1 mg. 3. Social work consult to assist with aftercare planning. The patient indicates willingness to attend [facility]. We will continue to follow along. Thank you for this consult.
--- NOTE | 2017-09-18 22:48 | Event Note ---
Event Note Event Note: S: Order #7 was called B: 56-year-old female with significant alcohol history for the past 40 years, active smoker, hypertension, HOCM (follows ), urinary incontinence, varicose veins, who was admitted to the [facility] floor for alcohol detox on 09/16. She never had history of seizures in the past/never admitted for alcohol detoxification. A/R -Patient having auditory and visual hallucination. Wants to smoke cigarettes and wants to leave -Resident notified, gave 1 mg of IV Haldol -Patient required almost 11 mg of Ativan in 3 hours -Another order #7 was called -Patient was delirious, confused and having auditory and visual hallucination -Lux Valerio MD updated and agreed with the following plan * Patient is going to be transferred to ICU * Soft restraints 4 * Patient will require Ativan drip * Close monitoring of electrolytes, repletion and high doses of thiamine * Patient's has been notified.
--- NOTE | 2017-09-18 23:37 | Event Note ---
Event Note Event Note: In summary this is a 56-year-old female with significant alcohol history for the past 40 years, active smoker, hypertension, HOCM (follows ), urinary incontinence, varicose veins, who was admitted to the [facility] floor for alcohol detox on 09/16/17. She never had history of seizures in the past/never admitted for alcohol detoxification. Order No. 7 was called this PM as patient was hallucinating and very agitated scoring 27 on her CIWA. She was transferred from to ICU for an Ativan drip. On exam vitals BP: 153/85, Pulse: 70; A/F. PE - alert but not oriented to place and person. HEENT - PERRLA, dry mucous membranes. CVS - normal S1, S2, no murmers, rubs, gallops. Respiratory exam - CTAB. Abdomen soft, NT, ND, with normal bowel sounds. Examination of LE revaled a surigical scar on left hip. No edema noted. Labs pertiennet for hypokalemia this AM, and transminitis. Of n ote patient received Haldol 4m IM x1, and 1mg IM x1 prior to transfer to the ICU. Assessment - Alcohol Detox - Alcoholic hepatitis. - HTN 2/2 alcohol withdrawl. Plan: - Will start patient on Ativan drip and titrate as per CIWA. - Obtain an ICU panel. Replete electrolytes to mainatin K>4, Mg >2; K>3 - Will also start her on banana bag and give high dose thiamine x1. - Maintain on aspiration and seizure precatuitions. - BP currently stable ~ 158/83- most liekly 2/2 alcohol withdrawl. She is on BZs for withdrawl. - place Richardson catheter, an dsoft restraiint in all 4 extremities as patient is agitated and pulling out lines. - Of note patient's was notified by the night float resident.
[2017-09-19] VITALS (8 sets, daily range): BP systolic 124–168; BP diastolic 60–108
[2017-09-19 04:48] LABS: ABSOLUTE BASOPHIL COUNT 0 /CUMM (0.0-0.2); ABSOLUTE EOSINOPHIL COUNT 0.2 /CUMM (0.0-0.7); ABSOLUTE GRANULOCYTE CT 4.2 /CUMM (1.4-6.5); ABSOLUTE LYMPH COUNT 2.8 /CUMM (1.2-3.4); ABSOLUTE MONOCYTE COUNT 0.5 /CUMM (0.10-0.60); BASOPHIL % 0.6 % (0.0-2.0); EOSINOPHIL % 2.2 % (0-5); GRANULOCYTE % 54.7 % (42.2-75.2); HEMATOCRIT 38.3 % (37-47); MEAN CORPUSCULAR HGB 32.8 PG (27.0-31.0); MEAN CORPUSCULAR HGB CONC 33.5 G/DL (33.0-37.0); MEAN CORPUSCULAR VOLUME 97.9 FL (81.0-99.0); MEAN PLATELET VOLUME 8.6 FL (7.4-10.4); PLATELET COUNT 183 /CUMM (130-400); RBC DISTRIBUTION WIDTH 13.6 % (11.5-14.5); RED BLOOD CELL CT 3.92 /CUMM (4.20-5.40); WHITE BLOOD CELL COUNT 7.7 /CUMM (4.8-10.8)
--- NOTE | 2017-09-19 07:29 | Cons- CRCU ---
Alphonso ROBERTO,[facility] 09/19/17 0729: General Information and HPI Consulting Request Date of Consult: 09/18/17 Requested By: Dr Corazon Biswas Reason for Consult: Patient requiring IV Ativan Source of Information: patient, family Exam Limitations: no limitations History of Present Illness: 56-year-old female with past medical history significant for hypertension, HOCM (follows ), urinary incontinence, varicose veins, presented to [facility] requesting alcohol detox on the morning of 09/18. Patient states she started drinking since she was 17. She has never had any alcohol withdrawals or hospitalizations in the past. She mentions she stopped drinking during her and her usual drinking consists of vodka around 16 ounces per day. Her last drink was on the morning (wine) of 09/15. She was started on Lexapro for depression/anxiety 3 months ago by her primary care physician but stopped taking it for the past 5 days prior to admission. She restarted it on the morning of admission. She started feeling loopy and came to the ER for detoxification. Of note she had elevated liver function tests during her routine workup by her primary care physician but never evaluated further with hepatitis panel or any alcohol related conditions like steatosis. Smokes around half pack per day for the past 40 years. Denies any drug abuse Allergies/Medications Allergies: Coded Allergies: Penicillins (Severe, ANAPHYLAXIS 08/10/17) Home Med List: Nebivolol HCl (Bystolic) 5 MG TABLET 1 TAB PO DAILY hypertension (Reported) Oxybutynin Chloride (Oxybutynin Chloride ER) 10 MG TAB.ER.24 1 TAB PO DAILY urinary incontinence (Reported) Current Medications: Current Medications Sig/Chetna Start time Last Medication Dose Route Stop Time Status Admin Clonidine 0.1 MG Q12P PRN 09/18 1000 AC PO Cyanocobalamin 1,000 MCG DAILY 09/19 1030 AC PO Cyanocobalamin/ 1 BAG DAILY 09/19 1000 CAN Thiamine/Pyridoxine IV Dextrose/Water 1,000 ML Enoxaparin Sodium 40 MG DAILY 09/16 1450 AC 09/19 SC 1019 Folic Acid 1 MG DAILY 09/19 1030 AC 09/19 PO 1024 Folic Acid 1 MG DAILY 09/17 1000 DC 09/18 PO 1001 Gabapentin 300 MG Q8 09/16 1400 AC 09/19 PO 1020 Haloperidol 4 MG ONE TIME ONE 09/18 2215 DC 09/18 IM 09/18 2216 2209 Haloperidol 1 MG ONE TIME ONE 09/18 2100 DC 09/18 IM 09/18 2101 2102 Influenza Virus 0.5 ML ONCE ONE 09/18 1730 DC 09/18 Vaccine IM 09/18 1731 1821 Lorazepam 0.5 MG Q6 09/21 0600 CAN PO 09/22 1201 Lorazepam 1 MG Q6 09/19 2359 CAN PO 09/21 0000 Lorazepam 2 MG Q6 09/19 1200 DC PO Lorazepam 2 MG Q4 09/19 1030 AC 09/19 PO 1020 Lorazepam 0 Q1P PRN 09/19 0900 AC IV Lorazepam 4 MG ONE ONE 09/18 2315 DC 09/18 IV 09/18 2316 2312 Lorazepam 4 MG .STK-MED ONE 09/18 2309 DC IM 09/18 2310 Lorazepam 50 MG Q24H 09/18 2230 DC 09/19 Dextrose/Water 500 ML IV 0017 Lorazepam 1 MG BID 09/18 2200 CAN PO Lorazepam 1.5 MG Q6 09/18 1800 DC 09/18 PO 09/19 1801 1822 Lorazepam 1 MG Q6H 09/17 1500 DC 09/18 PO 1000 Lorazepam See Dose Q1P PRN 09/16 1500 DC 09/18 Insts (1) IV 2200 Magnesium Oxide 400 MG BID 09/18 2200 DC 09/19 PO 09/19 1001 1020 Multivitamins 1 TAB DAILY 09/19 1030 AC 09/19 PO 1024 Multivitamins 1 TAB DAILY 09/17 1000 DC 09/18 PO 1004 Nebivolol 5 MG DAILY 09/16 2200 AC 09/19 PO 1021 Nicotine 2 MG Q2P PRN 09/16 1130 AC 09/18 PO 1002 Oxybutynin Chloride 5 MG BID 09/17 1232 AC 09/19 PO 1020 Potassium Chloride 40 MEQ ONCE ONE 09/18 1900 DC 09/18 PO 09/18 1901 1825 Potassium Chloride 40 MEQ ONCE ONE 09/18 1630 DC 09/18 PO 09/18 1631 1821 Thiamine HCl 100 MG DAILY 09/19 1030 AC 09/19 PO 1024 Thiamine HCl 250 MG ONCE ONE 09/18 2230 DC 09/19 Sodium Chloride 50 ML IV 09/18 2331 0205 Thiamine HCl 100 MG DAILY 09/17 1000 DC 09/18 PO 1001 Dose Instructions: (1)Lorazepam: See admin criteria Review of Systems Review of Systems Constitutional: Reports: no symptoms. 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 Home Smoking Status: Current Some Day Smoker ETOH Use: alcoholic Illicit Drug Use: denies illicit drug use Functional Ability ADLs Independent: dressing, eating, toileting, bathing. Ambulation: independent IADLs Independent: shopping, housework, finances, food prep, telephone, transportation , medication admin. Exam & Diagnostic Data Last 24 Hrs of Vital Signs/I&O Vital Signs Date Time Temp Pulse Resp B/P B/P Pulse O2 O2 Flow FiO2 Mean Ox Delivery Rate 09/19 1021 86 139/74 09/19 0600 97.2 76 14 128/79 09/19 0400 97.2 72 16 128/92 09/19 0400 97 Nasal 2.0L Cannula 09/19 0000 97.8 70 16 138/98 09/19 0000 99 Nasal 2.0L Cannula 09/19 0000 97.8 70 16 138/98 99 Nasal 2.0L Cannula 09/18 2315 97.8 72 25 138/98 09/18 2130 180/84 09/18 2100 98.3 72 20 170/102 95 Room Air 09/18 1804 99.3 72 20 168/84 93 Room Air 09/18 1800 98.0 70 16 120/78 09/18 1600 98.2 72 16 120/76 09/18 1600 98.2 72 16 120/76 97 Room Air 09/18 1412 97.5 80 20 130/80 95 Room Air 09/18 1400 98.3 74 16 118/72 09/18 1200 98.4 72 16 116/74 Intake & Output 09/19 1600 09/19 0800 09/19 0000 Intake Total 80 Output Total 600 Balance -520 Intake, IV 80 Intake, Oral 0 Number 0 Bowel Movements Output, Urine 600 Patient 150 lb Weight Physical Exam General Appearance: no apparent distress, alert, awake, comfortable Head: atraumatic, normal appearance Eyes: Bilateral: normal appearance. Ears, Nose, Throat: normal ENT inspection Respiratory: normal breath sounds, chest non-tender, lungs clear Cardiovascular: regular rate/rhythm Gastrointestinal: soft, non-tender Extremities: no edema Neurologic/Psych: oriented x1 Last 48 Hrs of Labs/Howie: Laboratory Tests 09/19/17 0349: Anion Gap 11, Estimated GFR > 60, BUN/Creatinine Ratio 18.8, Magnesium 1.9, TSH &T3 &Free T4 Intrp 2.620, CBC w Diff NO MAN DIFF REQ, RBC 3.92 L, MCV 97.9, MCH 32.8 H, RDW 13.6, MPV 8.6, Gran % 54.7, Lymphocytes % 36.5, Monocytes % 6.0, Eosinophils % 2.2, Basophils % 0.6, Absolute Granulocytes 4.2, Absolute Lymphocytes 2.8, Absolute Monocytes 0.5, Absolute Eosinophils 0.2, Absolute Basophils 0, PUBS MCHC 33.5 09/18/17 2240: Anion Gap 11, Estimated GFR > 60, BUN/Creatinine Ratio 18.9, Phosphorus 5.0 H, Magnesium 1.8 09/18/17 1614: RPR Titer/FTA NONREACTIVE 09/18/17 1000: Vitamin B12 Cancelled 09/18/17 0952: Total Bilirubin 1.2, Direct Bilirubin 0.5 H, AST 118 H, ALT 72 H, Alkaline Phosphatase 153 H, Total Protein 6.4, Albumin 3.6 09/18/17 0805: Anion Gap 11, Estimated GFR > 60, BUN/Creatinine Ratio 21.7, Phosphorus 3.4, Magnesium 1.6, Vitamin B12 855, CBC w Diff NO MAN DIFF REQ, RBC 3.89 L, MCV 97.7, MCH 33.1 H, RDW 13.9, MPV 8.8, Gran % 55.8, Lymphocytes % 36.1, Monocytes % 5.9, Eosinophils % 1.8, Basophils % 0.4, Absolute Granulocytes 3.9, Absolute Lymphocytes 2.5, Absolute Monocytes 0.4, Absolute Eosinophils 0.1, Absolute Basophils 0, PUBS MCHC 33.9 Assessment/Plan Impression/Plan: Patient is a 56-year-old female with significant alcohol history for the past 40 years, active smoker, hypertension, HOCM (follows ), urinary incontinence, varicose veins, presented to [facility] requesting alcohol detox. She never had history of seizures in the past/never admitted for alcohol detoxification. Assessment and Plan: Alcohol Detoxification: She was admitted to ICU after she became extremely agitated on the floor with escalating CIWA scores warranting the need for Ativan drip. She was continued on IV Ativan for a couple of hours after which she calmed down. * Discontinue IV Ativan as patient is doing much better this morning. * Ativan 2mg q4 PO * Ativan per CIWA standard dosing * Continue thiamine and folic acid supplementation * Continue Clonidine prn * Replete electrolytes to maintain K >4.0 and Mg >2.0 * Patient is stable to be transferred back to general medicine floor. Transaminitis: * She has mild transaminitis. Unclear if its new. Reported to have been found elevated LFTs with her PCP. * RUQ U/S showed no focal lesion or intrahepatic ductal dilatation. * Hepatitis panel has been negative. History of HOCM and HTN: * Continue home dose of Nebivolol. History of urinary incontinence: * Continue oxybutynin 10mg ER daily. DVT prophylaxis Subcutaneous Lovenox CODE STATUS Full code Consult Acknowledgment - Thank you for your consult request. Timbo Rodríguez MD 09/19/17 1047: Assessment/Plan Other Findings/Comments: Timbo Alfonso M.D. have examined this patient, reviewed available EMR data, personally reviewed images, discussed with resident/PA/ACETALDEHYDE CONVERTER OPERATOR, discussed management plan with housestaff and nursing staff, discussed managment plan all of healthcare providers, discussed management plan with patient and/or family, agreed with resident/PA/ACETALDEHYDE CONVERTER OPERATOR. The past history and parts of the chart have been autopopulated. Impression 56-year-old woman with alcohol dependence and withdrawal. Also with transaminitis likely alcohol induced. Plan -Crisis/psychology evaluation -Ativan 2 mg by mouth every 4 and Ativan IV when necessary -Monitor LFTs and replete electrolytes as needed. -Resume all 2 vitamins for the time -Patient alert and awake and ready for a general med downgraded today DVT prophylaxis at all time TTS 35 min Consult Acknowledgment - Thank you for your consult request.
[2017-09-20 01:00] VITALS: BP 178/116
[2017-09-20 05:00] VITALS: BP 162/84
--- NOTE | 2017-09-20 05:25 | Event Note ---
Event Note Event Note: S: paged by nurse patient is agitated and having hallucinations visual and auditory B: 56-year-old female with significant alcohol history for the past 40 years, active smoker, hypertension, HOCM (follows ), urinary incontinence, varicose veins, who was admitted to [facility] floor for alcohol detox on 09/16. She never had history of seizures in the past/never admitted for alcohol detoxification. She was transferred to ICU yesterday secondary to increased ativan requirements for IV Ativan drip. She was later transferred back to general medicine floor A/R: Went in and evaluated the patient. Patient is confused and not oriented to time place and person. She is having visual and auditory hallucinations. Soft restraints x4 -CIWA running high 12,8,18,22 -She has required 10 mg of Ativan in last 4h *Nursing staff concerned about increased Ativan requirements wanted to transfer to ICU. We decided to monitor for 1 more hours for any improvement. Nursing rn house supervisor was also notified. She emphasized unavailability of beds and if patient can be managed on floor it should be tried. Went in and evaluated the patient again around 3 AM. She was sleeping and snoring. No events after that. We are going to monitor patient on [facility] for now. We will sign off to the morning team. *Attending Dr. Naidu updated and agreed
--- NOTE | 2017-09-20 08:02 | Patient Discharge Instructions ---
Discharge Instructions General Discharge Information You were seen/treated for: alcohol withdrawal Special Instructions: 1. please follow up with pcp in one week Diet Continue normal diet: Yes Activity Full Activity/No Limits: Yes Acute Coronary Syndrome Inclusion Criteria At DC or during hospital stay patient has or had the following: ACS DIAGNOSIS No Discharge Core Measures Meds if any: Prescribed or Continued at Discharge ARNIE/ARB if EF <40% No Meds if any: NOT Prescribed or Continued at Discharge Congestive Heart Failure Inclusion Criteria At DC or during hospital stay patient has or had the following: CHF DIAGNOSIS No Discharge Core Measures Meds if any: Prescribed or Continued at Discharge Meds if any: NOT Prescribed or Continued at Discharge Cerebrovascular accident Inclusion Criteria At DC or during hospital stay patient has or had the following: CVA/TIA Diagnosis No Discharge Core Measures Meds if any: Prescribed or Continued at Discharge Meds if any: NOT Prescribed or Continued at Discharge Venous thromboembolism Inclusion Criteria VTE Diagnosis No VTE Type NONE VTE Confirmed by (Test) NONE Discharge Core Measures - Per Current guidelines, there needs to be overlap - treatment for the first 5 days of Warfarin therapy. - If discharged on Warfarin prior to 5 days of - overlap therapy, the patient will need to be - assessed for post discharge needs including - *Post discharge parental anticoagulation - *Warfarin and/or parental anticoagulation education - *Follow up date to check INR post discharge At least 5 days overlap therapy as Inpatient No Meds if any: Prescribed or Continued at Discharge Note: Overlap Therapy is Warfarin and Anticoagulant Meds if any: NOT Prescribed or Continued at Discharge
[2017-09-20 08:16] LABS: ABSOLUTE BASOPHIL COUNT 0 /CUMM (0.0-0.2); ABSOLUTE EOSINOPHIL COUNT 0.1 /CUMM (0.0-0.7); ABSOLUTE GRANULOCYTE CT 5.4 /CUMM (1.4-6.5); ABSOLUTE LYMPH COUNT 2.1 /CUMM (1.2-3.4); ABSOLUTE MONOCYTE COUNT 0.6 /CUMM (0.10-0.60); BASOPHIL % 0.5 % (0.0-2.0); EOSINOPHIL % 1.4 % (0-5); GRANULOCYTE % 65.5 % (42.2-75.2); HEMATOCRIT 39.7 % (37-47); MEAN CORPUSCULAR HGB 33.3 PG (27.0-31.0); MEAN CORPUSCULAR HGB CONC 34.1 G/DL (33.0-37.0); MEAN CORPUSCULAR VOLUME 97.6 FL (81.0-99.0); PLATELET COUNT 200 /CUMM (130-400); RBC DISTRIBUTION WIDTH 13.7 % (11.5-14.5); RED BLOOD CELL CT 4.07 /CUMM (4.20-5.40); WHITE BLOOD CELL COUNT 8.2 /CUMM (4.8-10.8)
--- NOTE | 2017-09-20 10:09 | PN- Psychiatry ---
Assessment/Plan Impression: The patient has had a brief stay in the ICU yesterday and the previous night, and was on a lorazepam drip at 3-4 mg/hour for about one hour, per discussion with Drs. Rodríguez and Jeremie on 09/19/17. Due to her presentation at that time, we felt that starting the ETOH lorazepam detox taper protocol at 2 mg PO every 4 hours with as needed doses, per CIWA protocol was a reasonable starting point. Last night, she was agitated, and a maximum CIWA of 22. She has had 20 mg of lorazepam in the last 24 hours, including 6 mg as needed, per CIWA. After discusion with Dr. Kearney, attending, we will resume management of her lorazepam taper. CIWA from 09/20/17 @ 1000: 8-3-5-4-79-41-5-20-3-35-1-4-7-6-10-7 VS @ 0850: 154/82, 71, 98.2, 18, 91% (Supp. oxygen not listed, but she had been on 3LNC last night0 Labs reviewed for today: AST 110/ALT 73. Due to a history of elevated liver enzymes, per the H&P, which are continuing today, we suggest that chlordiazepoxide/Librium not be used. Also, the dosing ordered, 25 mg PO TID, is only equivalent to 3 mg lorazepam over 24 hours, a drastic decrease from the 20 mg/24 hours, see above. Suggestion: 1. I will cancel chlordiazepoxide/Librium. 2. Lorazepam 3 mg PO every 4 hours, which we will review on the morning of . This is slightly less than her last 24 hour total. Hold for oversedation or respiratory depression; do not hold for sleep. 3. Continue as needed lorazepam, per CIWA protocol. 4. Please order a repeat EKG, in case haloperidol is needed for severe agitation. 5. Continue daily thiamine, MVI, folic acid. 6. If severe or violent agitation or aggression, haloperidol 1 mg, PO if possible, IM if unable to take PO, every 12 hours as needed. Before administration, ensure that there are no arrhythmias and QTc is less than 475 mS. Also, monitor and replete potassium and magnesium to the upper portion of the normal range. Hold for respiratory depression or oversedation. We will continue to follow along. Subjective Subjective: The patient is drowsy, lying in bed in 2-point soft wrist restraints. She is calm and pleasant. Oriented to person, place, year, but not to month (Sep), day (I lost track). She denies amando visual hallucinations, at this time, but reports she is seeing double. She denies auditory or tactile hallucinations, but then reports she is talking to her "friends," indicating the bed rails. She denies suicidal or homicidal ideation. Objective Last 24 Hrs of Vital Signs/I&O Vital Signs Date Time Temp Pulse Resp B/P B/P Pulse O2 O2 Flow FiO2 Mean Ox Delivery Rate 09/20 0850 154/82 09/20 0500 98.2 71 18 162/84 91 09/20 0124 178/116 09/20 0100 98.2 72 18 178/116 91 09/19 1999 98.4 69 16 168/108 09/19 1999 98.4 69 16 168/108 92 Nasal 3.0L Cannula 09/19 1600 Nasal 1.0L Cannula 09/19 1246 94 Nasal 1.0L Cannula 09/19 1244 98.6 86 20 140/60 94 Nasal 1.0L Cannula 09/19 1207 82 16 148/87 09/19 1021 86 139/74 Intake & Output 09/20 1600 09/20 0800 09/20 0000 Intake Total 280 280 Output Total 350 300 Balance -70 -20 Intake, IV 40 40 Intake, Oral 240 240 Number 0 0 Bowel Movements Output, Urine 350 300 Physical Exam: Not performed. Physical Exam General Appearance: no apparent distress Current Medications: Current Medications Sig/Chetna Start time Last Medication Dose Route Stop Time Status Admin Chlordiazepoxide HCl 25 MG TID 09/20 1000 AC PO Clonidine 0.1 MG Q8P PRN 09/20 0845 AC PO Clonidine 0.1 MG Q12P PRN 09/18 1000 DC 09/20 PO 0124 Cyanocobalamin 1,000 MCG DAILY 09/19 1030 DC 09/20 PO 0849 Enoxaparin Sodium 40 MG DAILY 09/16 1450 AC 09/20 SC 0849 Folic Acid 1 MG DAILY 09/19 1030 AC 09/20 PO 0849 Gabapentin 300 MG 0000,0800,1600 09/19 1600 AC 09/20 PO 0849 Gabapentin 300 MG Q8 09/16 1400 DC 09/19 PO 1020 Lorazepam 3 MG Q4 09/20 1000 AC PO Lorazepam 2 MG Q6 09/19 1200 DC PO Lorazepam 2 MG Q4 09/19 1030 DC 09/20 PO 0849 Lorazepam 0 Q1P PRN 09/19 0900 AC 09/20 IV 0117 Multivitamins 1 TAB DAILY 09/19 1030 AC 09/20 PO 0849 Nebivolol 5 MG DAILY 09/16 2200 AC 09/20 PO 0850 Nicotine 14 MG DAILY 09/20 1000 AC 09/20 TOP 0849 Nicotine 2 MG Q2P PRN 09/16 1130 DC 09/19 PO 1121 Oxybutynin Chloride 5 MG BID 09/17 1232 AC 09/20 PO 0848 Thiamine HCl 100 MG DAILY 09/19 1030 AC 09/20 PO 0849 Results Last 24 Hrs of Labs/Mics: Laboratory Tests 09/20 0701 Chemistry Sodium (137 - 145 mmol/L) 141 Potassium (3.5 - 5.1 mmol/L) 3.9 Chloride (98 - 107 mmol/L) 100 Carbon Dioxide (22 - 30 mmol/L) 28 Anion Gap (5 - 16) 13 BUN (7 - 17 mg/dL) 9 Creatinine (0.5 - 1.0 mg/dL) 0.6 Estimated GFR (>60 ml/min) > 60 Glucose (65 - 99 mg/dL) 94 Calcium (8.4 - 10.2 mg/dL) 9.2 Phosphorus (2.5 - 4.5 mg/dL) 4.7 H Magnesium (1.6 - 2.3 mg/dL) 1.9 Total Bilirubin (0.2 - 1.3 mg/dL) 0.9 AST (14 - 36 U/L) 110 H ALT (9 - 52 U/L) 73 H Albumin (3.5 - 5.0 g/dL) 3.6 Hematology CBC w Diff NO MAN DIFF REQ WBC (4.8 - 10.8 /CUMM) 8.2 RBC (4.20 - 5.40 /CUMM) 4.07 L Hgb (12.0 - 16.0 G/DL) 13.6 Hct (37 - 47 %) 39.7 MCV (81.0 - 99.0 FL) 97.6 MCH (27.0 - 31.0 PG) 33.3 H RDW (11.5 - 14.5 %) 13.7 Plt Count (130 - 400 /CUMM) 200 MPV (7.4 - 10.4 FL) 8.0 Gran % (42.2 - 75.2 %) 65.5 Lymphocytes % (20.5 - 51.1 %) 25.2 Monocytes % (1.7 - 9.3 %) 7.4 Eosinophils % (0 - 5 %) 1.4 Basophils % (0.0 - 2.0 %) 0.5 Absolute Granulocytes (1.4 - 6.5 /CUMM) 5.4 Absolute Lymphocytes (1.2 - 3.4 /CUMM) 2.1 Absolute Monocytes (0.10 - 0.60 /CUMM) 0.6 Absolute Eosinophils (0.0 - 0.7 /CUMM) 0.1 Absolute Basophils (0.0 - 0.2 /CUMM) 0 PUBS MCHC (33.0 - 37.0 G/DL) 34.1
--- NOTE | 2017-09-20 10:10 | PN- Housestaff ---
Zulay ROBERTO,Corazon 09/20/17 1009: Subjective Follow-up For: ALCOHOL WITHDRAWAL Subjective: PATIENT STILL CONFUSED OF THIS MORNING. LAST NIGHT CIWA 22, HALLUCINATIONS AND AGITATION AND CONFUSION. NEEDED 10MG ATIVAN IN 4 HOURS. Review of Systems Constitutional: Reports: no symptoms. Cardiovascular: Reports: no symptoms. Respiratory: Reports: no symptoms. Gastrointestinal: Reports: no symptoms. Neurological/Psychological: Reports: see HPI, confusion. Objective Last 24 Hrs of Vital Signs/I&O Vital Signs Date Time Temp Pulse Resp B/P B/P Pulse O2 O2 Flow FiO2 Mean Ox Delivery Rate 09/20 0850 154/82 09/20 0500 98.2 71 18 162/84 91 09/20 0124 178/116 09/20 0100 98.2 72 18 178/116 91 09/19 1999 98.4 69 16 168/108 09/19 1999 98.4 69 16 168/108 92 Nasal 3.0L Cannula 09/19 1600 Nasal 1.0L Cannula 09/19 1246 94 Nasal 1.0L Cannula 09/19 1244 98.6 86 20 140/60 94 Nasal 1.0L Cannula 09/19 1207 82 16 148/87 Intake & Output 09/20 1600 09/20 0800 09/20 0000 Intake Total 280 280 Output Total 300 350 300 Balance -300 -70 -20 Intake, IV 40 40 Intake, Oral 240 240 Number 0 0 Bowel Movements Output, Urine 300 350 300 Physical Exam General Appearance: Alert, Cooperative, No Acute Distress Skin: No Rashes, No Breakdown, No Significant Lesion HEENT: Atraumatic, PERRLA Cardiovascular: Regular Rate, Normal S1, Normal S2, No Murmurs Lungs: Clear to Auscultation, Normal Air Movement Abdomen: Normal Bowel Sounds, Soft, No Tenderness Neurological: Normal Speech Extremities: No Edema, Normal Pulses, No Tenderness/Swelling Current Medications: Current Medications Sig/Chetna Start time Last Medication Dose Route Stop Time Status Admin Chlordiazepoxide HCl 25 MG TID 09/20 1000 DC PO Clonidine 0.1 MG Q8P PRN 09/20 0845 AC PO Clonidine 0.1 MG Q12P PRN 09/18 1000 DC 09/20 PO 0124 Cyanocobalamin 1,000 MCG DAILY 09/19 1030 DC 09/20 PO 0849 Enoxaparin Sodium 40 MG DAILY 09/16 1450 AC 09/20 SC 0849 Folic Acid 1 MG DAILY 09/19 1030 AC 09/20 PO 0849 Gabapentin 300 MG 0000,0800,1600 09/19 1600 AC 09/20 PO 0849 Gabapentin 300 MG Q8 09/16 1400 DC 09/19 PO 1020 Lorazepam 3 MG Q4 09/20 1000 AC PO Lorazepam 2 MG Q4 09/19 1030 DC 09/20 PO 0849 Lorazepam 0 Q1P PRN 09/19 0900 AC 09/20 IV 0117 Multivitamins 1 TAB DAILY 09/19 1030 AC 09/20 PO 0849 Nebivolol 5 MG DAILY 09/16 2200 AC 09/20 PO 0850 Nicotine 14 MG DAILY 09/20 1000 AC 09/20 TOP 0849 Nicotine 2 MG Q2P PRN 09/16 1130 DC 09/19 PO 1121 Oxybutynin Chloride 5 MG BID 09/17 1232 AC 09/20 PO 0848 Patient Medication 1 ED ONE ONE 09/20 1100 DC Teaching ED 09/20 1101 Thiamine HCl 100 MG DAILY 09/19 1030 AC 09/20 PO 0849 Last 24 Hrs of Lab/Howie Results Last 24 Hrs of Labs/Mics: Laboratory Tests 09/20/17 0701: Anion Gap 13, Estimated GFR > 60, Glucose 94, Calcium 9.2, Phosphorus 4.7 H, Magnesium 1.9, Total Bilirubin 0.9, AST 110 H, ALT 73 H, Albumin 3.6, CBC w Diff NO MAN DIFF REQ, RBC 4.07 L, MCV 97.6, MCH 33.3 H, RDW 13.7, MPV 8.0, Gran % 65.5, Lymphocytes % 25.2, Monocytes % 7.4, Eosinophils % 1.4, Basophils % 0.5, Absolute Granulocytes 5.4, Absolute Lymphocytes 2.1, Absolute Monocytes 0.6 , Absolute Eosinophils 0.1, Absolute Basophils 0, PUBS MCHC 34.1 Assessment/Plan Assessment: Patient is a 56-year-old female with significant alcohol history for the past 40 years, active smoker, hypertension, HOCM (follows ), urinary incontinence, varicose veins, presented to [facility] requesting alcohol detox. She never had history of seizures in the past/never admitted for alcohol detoxification. Vital signs at admission are afebrile, heart rate 90, blood pressure 180/90 mmHg , saturating 95% on room air. Physical examination is unremarkable except for abdominal distention with mild hepatomegaly. Tremors present. Labs - white count of 11.2, H&H 15/46, MCV 96. Sodium 142, potassium 3.8, anion gap 18, AST/ALT 243/105 (2 wish to 1), alkaline phosphatase 194. Augmentin 4.4. Toxic screen shows serum alcohol level of 67. UA is pending Admitted to general medicine floor FOR: Alcohol detoxification CIWA protocol with scheduled and as needed ativan dosing. Clonidine for high blood pressure during withdrawal. -CIWA 22 LAST NIGHT FOR AUDITORY AND VISUAL HALLUCINATIONS. PATIENT HAVING SIGNIFICANT SIGNS OF WITHDRAWAL. -PATIENT STILL HAVING ELEVATED BP, WILL INCREASE THE CLONIDINE FROM Q12 TO Q8. -NOTE THAT CLONIDINE MAY MASK SYMPTOMS OF WITHDRAWAL -CONTINUE ATIVAN DOSING CIWA PROTOCOL AND INCREASE ATIVAN TO 3MG Q4 HOURS AND TAPER APPROPRIATE LATER TODAY. -FOLIC ACID, THIAMINE, MULTIVIT, VIT B -SOCIAL WORK AND PSYCHIATRY FOR OUTPATIENT PLACEMENT. Transaminitis AST/ALT induced 1 ratio secondary to significant alcohol consumption. We will trend the LFTs. Right upper quadrant ultrasound SHOWED SIGNIFICANTLY ENLARGED LIVER BUT NO FOCAL LESION OR INTRAHEPATIC DUCTAL DILATATION- EVIDENCE OF HEPATATIS OR FATTY INFILTRATION. NEGATIVE HEPATITIS PANEL LFT ELEVATIONS ARE RESOLVING History of HOCM and HTN Patient was on Bystolic at home, we will continue that for now. History of urinary incontinence Cotinue oxybutynin 10mg ER daily. PATIENT WAS ON STRAIGHT CATH PROTOCOL SINCE ICU, SHE IS VOIDING WELL ON HER OWN SO DC. HYPERKALEMIA, HYPOMAGNESEMIA REPLETE NEEDED TO KEEP K AT LEAST 4 AND MG AT LEAST 2 DVT prophylaxis Subcutaneous Lovenox CODE STATUS Full code Problem List: 1. Alcohol dependency Pain Ratin Pain Location: NA Pain Goal: Remain pain free Pain Plan: NA Tomorrow's Labs & Rationales: CBC BEP Francine Kearney 09/20/17 1142: Attending MD Review Statement Attending Statement Attending MD Statement: examined this patient, discuss w/resident/PA/DIRECTOR BUSINESS INTELLIGENCE, agreed w/resident/PA/DIRECTOR BUSINESS INTELLIGENCE, discussed with family, reviewed EMR data (avail), discussed with nursing, discussed with case mgmt, reviewed images, amended to note Attending Assessment/Plan: 56 o/f with pmh of alcohol abuse, hypertension comes with altered mental status 2/2 delirium related to alcohol withdrawal and admitted to inpatient medical services for alcohol withdrawal impending delirium tremens with moderate transaminits. Patient seen/examined bedside. Patient appears to be deliriuos, bedside Continue on CIWA protocol, taper ativan as per CIWA, thiamine, folic acid, bp control. Closely monitor hemodynamics. and [facility] eval f/u. gi/dvt prophylaxis full code. Discussed plan of care with bedside.
[2017-09-20 15:45] VITALS: BP 140/90
[2017-09-20 21:59] VITALS: BP 150/90
--- NOTE | 2017-09-20 22:24 | Event Note ---
Event Note Event Note: Order #7 called patient out of the room and severely agitated. She is hallucinating and not oriented to time and place and person -Patient is currently on 3 mg Ativan every 4 hours. -We were signed out that use 1 mg haldol if patient becomes severely agitated. * soft restraint x3 * 1 mg haldol given -no events after that -Pt reevaluated sleeping
[2017-09-21 02:00] VITALS: BP 138/88
[2017-09-21 06:10] VITALS: BP 146/94
[2017-09-21 08:26] LABS: ABSOLUTE BASOPHIL COUNT 0 /CUMM (0.0-0.2); ABSOLUTE EOSINOPHIL COUNT 0.2 /CUMM (0.0-0.7); ABSOLUTE LYMPH COUNT 2.5 /CUMM (1.2-3.4); BASOPHIL % 0.4 % (0.0-2.0); EOSINOPHIL % 1.6 % (0-5); GRANULOCYTE % 62.2 % (42.2-75.2); HEMATOCRIT 41.8 % (37-47); MEAN CORPUSCULAR HGB 32.9 PG (27.0-31.0); MEAN CORPUSCULAR HGB CONC 33.8 G/DL (33.0-37.0); MEAN CORPUSCULAR VOLUME 97.3 FL (81.0-99.0); MEAN PLATELET VOLUME 8.4 FL (7.4-10.4); PLATELET COUNT 230 /CUMM (130-400); RBC DISTRIBUTION WIDTH 13.7 % (11.5-14.5); WHITE BLOOD CELL COUNT 9.7 /CUMM (4.8-10.8)
--- NOTE | 2017-09-21 12:33 | PN- Housestaff ---
Zulay ROBERTO,Corazon 09/21/17 1233: Subjective Follow-up For: ALCOHOL WITHDRAWAL Subjective: PATIENT HAS BETTER CIWAS OVERNIGHT. VERY DROWSY IN THE MORNING. PER HER MENTAL STATUS WAS BETTER LAST NIGHT BUT AGAIN GOT WORSE DURING THE MORNING. Review of Systems Constitutional: Reports: no symptoms. Neurological/Psychological: Reports: anxiety, confusion. Objective Last 24 Hrs of Vital Signs/I&O Vital Signs Date Time Temp Pulse Resp B/P B/P Pulse O2 O2 Flow FiO2 Mean Ox Delivery Rate 09/21 1543 98.3 77 20 136/85 93 Room Air 09/21 1016 80 146/94 09/21 0610 98.4 80 20 146/94 93 09/21 0200 99.0 88 18 138/88 09/21 0200 99.0 88 18 138/88 94 Room Air 09/20 2230 99.2 85 20 95 Nasal Room Air Cannula 09/20 2159 150/90 09/20 1600 Nasal 1.0L Cannula Intake & Output 09/21 1600 09/21 0800 09/21 0000 Intake Total 500 900 Output Total 450 Balance 500 450 Intake, IV 0 Intake, Oral 500 900 Number 1 Bowel Movements Output, Urine 450 Physical Exam General Appearance: Cooperative, No Acute Distress Skin: No Rashes, No Breakdown, No Significant Lesion Sepsis Skin Exam (color): Normal for Ethnicity HEENT: Atraumatic, PERRLA, EOMI, Mucous Membr. moist/pink Cardiovascular: Regular Rate, Normal S1, Normal S2, No Murmurs Lungs: Clear to Auscultation, Normal Air Movement Abdomen: Normal Bowel Sounds, Soft, No Tenderness, No Hepatospenomegaly Neurological: Normal Speech Extremities: No Clubbing, No Cyanosis, No Edema, Normal Pulses, No Tenderness/ Swelling Vascular: Normal Pulses, Pulses Symmetrical Current Medications: Current Medications Sig/Chetna Start time Last Medication Dose Route Stop Time Status Admin Clonidine 0.1 MG Q8P PRN 09/20 0845 AC PO Enoxaparin Sodium 40 MG DAILY 09/16 1450 AC 09/21 SC 1016 Folic Acid 1 MG DAILY 09/19 1030 AC 09/21 PO 1016 Gabapentin 300 MG 0000,0800,1600 09/19 1600 AC 09/21 PO 1016 Haloperidol 1 MG BID PRN 09/20 1345 AC 09/20 IM 2216 Lorazepam 3 MG 5 TIMES A DAY 09/21 1800 AC PO Lorazepam 3 MG Q4 09/20 1000 DC 09/21 PO 1400 Lorazepam 0 Q1P PRN 09/19 0900 AC 09/20 IV 2155 Multivitamins 1 TAB DAILY 09/19 1030 AC 09/21 PO 1016 Nebivolol 5 MG DAILY 09/16 2200 AC 09/21 PO 1016 Nicotine 14 MG DAILY 09/20 1000 AC 09/21 TOP 1016 Oxybutynin Chloride 5 MG BID 09/17 1232 AC 09/21 PO 1016 Thiamine HCl 100 MG DAILY 09/19 1030 AC 09/21 PO 1016 Last 24 Hrs of Lab/Howie Results Last 24 Hrs of Labs/Mics: Laboratory Tests 09/21/17 0642: Anion Gap 15, Estimated GFR > 60, BUN/Creatinine Ratio 14.3, CBC w Diff NO MAN DIFF REQ, RBC 4.30, MCV 97.3, MCH 32.9 H, MCHC 33.8, RDW 13.7, MPV 8.4, Gran % 62.2, Lymphocytes % 25.3, Monocytes % 10.5 H, Eosinophils % 1.6, Basophils % 0.4, Absolute Granulocytes 6.0, Absolute Lymphocytes 2.5, Absolute Monocytes 1.0 H, Absolute Eosinophils 0.2, Absolute Basophils 0 Orders CIWA Score (last 24 hrs): 7 Assessment/Plan Assessment: Patient is a 56-year-old female with significant alcohol history for the past 40 years, active smoker, hypertension, HOCM (follows ), urinary incontinence, varicose veins, presented to [facility] requesting alcohol detox. She never had history of seizures in the past/never admitted for alcohol detoxification. Vital signs at admission are afebrile, heart rate 90, blood pressure 180/90 mmHg , saturating 95% on room air. Physical examination is unremarkable except for abdominal distention with mild hepatomegaly. Tremors present. Labs - white count of 11.2, H&H 15/46, MCV 96. Sodium 142, potassium 3.8, anion gap 18, AST/ALT 243/105 (2 wish to 1), alkaline phosphatase 194. Augmentin 4.4. Toxic screen shows serum alcohol level of 67. UA is pending Admitted to general medicine floor FOR: Alcohol detoxification The patient is making progress, per nursing report of CIWA, is not delirious, nor suicidal. We note that she was agitated last night and required haloperidol and soft restraints UPPER AND LOWER. CIWA protocol with scheduled and as needed ativan dosing. Clonidine for high blood pressure during withdrawal. -CIWA 7 LAST NIGHT FOR ORIENTATION, DIAPHORESIS, ANXIETY, TREMORS. SIGHS OF WITHDRAWAL ARE LESS AND PER SHE IS SOMEWHAT BETTER THAN YESTERDAY. -PATIENT STILL HAVING ELEVATED BP, WILL CONTINUE .1MG Q8. -NOTE THAT CLONIDINE MAY MASK SYMPTOMS OF WITHDRAWAL -CONTINUE ATIVAN DOSING CIWA PROTOCOL AND DECREASE ATIVAN FROM 18MG A DAY TO 3MG PO 5X IN 24 HOURS, TOTAL 15 MG PER DAY AND TAPER APPROPRIATE. -FOLIC ACID, THIAMINE, MULTIVIT, VIT B -SOCIAL WORK AND PSYCHIATRY FOR OUTPATIENT PLACEMENT. -CONTIUNE HALDOL NEEDED 1MG IM BID PRN Transaminitis AST/ALT induced 1 ratio secondary to significant alcohol consumption. We will trend the LFTs. Right upper quadrant ultrasound SHOWED SIGNIFICANTLY ENLARGED LIVER BUT NO FOCAL LESION OR INTRAHEPATIC DUCTAL DILATATION- EVIDENCE OF HEPATATIS OR FATTY INFILTRATION. NEGATIVE HEPATITIS PANEL LFT ELEVATIONS ARE RESOLVING History of HOCM and HTN Patient was on Bystolic at home, we will continue that for now. History of urinary incontinence Cotinue oxybutynin 10mg ER daily. PATIENT WAS ON STRAIGHT CATH PROTOCOL SINCE ICU, SHE IS VOIDING WELL ON HER OWN SO DC. HYPERKALEMIA, HYPOMAGNESEMIA REPLETE NEEDED TO KEEP K AT LEAST 4 AND MG AT LEAST 2 DVT prophylaxis Subcutaneous Lovenox CODE STATUS Full code Problem List: 1. Alcohol dependency Pain Ratin Pain Location: NA Pain Goal: Remain pain free Pain Plan: PRN Tomorrow's Labs & Rationales: CBC BEP CaioFrancine 09/21/17 1245: Attending MD Review Statement Attending Statement Attending MD Statement: examined this patient, discuss w/resident/PA/VP HR DIVERSITY, agreed w/resident/PA/VP HR DIVERSITY, discussed with family, reviewed EMR data (avail), discussed with nursing, discussed with case mgmt, reviewed images, amended to note Attending Assessment/Plan: 56 o/f with pmh of alcohol abuse, hypertension comes with altered mental status 2/2 delirium related to alcohol withdrawal and admitted to inpatient medical services for alcohol withdrawal impending delirium tremens with moderate transaminits. She needed close monitoring in ICU for her DTs. Patient seen/examined bedside. Patient still appears to be deliriuos, bedside Continue on CIWA protocol, taper ativan as per jane thiamine, folic acid, bp control. Closely monitor hemodynamics. and [facility] eval f/u. gi/dvt prophylaxis full code. Discussed plan of care with bedside.
--- NOTE | 2017-09-21 14:27 | PN- Psychiatry ---
Assessment/Plan Impression: The patient is making progress, per nursing report of [facility], is not delirious, nor suicidal. We note that she was agitated last night and required haloperidol and soft restraints. We will reduce the standing lorazepam order and review in the morning. Suggestion: 1. Lorazepam 3 mg PO 5X/24 hours, for a daily total of 15 mg. Hold for oversedation or respiratory depression; do not hold for sleep. 3. Continue as needed lorazepam, per [facility] protocol. 4. Continue daily thiamine, MVI, folic acid. 5. If severe or violent agitation or aggression, haloperidol 1 mg, PO if possible, IM if unable to take PO, every 12 hours as needed. Before administration, ensure that there are no arrhythmias and QTc is less than 475 mS. Also, monitor and replete potassium and magnesium to the upper portion of the normal range. Hold for respiratory depression or oversedation. We will continue to follow along. Subjective Subjective: A+O, No AVH, no delusions, denies SI or HI. Calm and cooperative.
[2017-09-21 15:43] VITALS: BP 136/85
[2017-09-21 20:00] VITALS: BP 136/84
[2017-09-21 22:00] VITALS: BP 136/84
[2017-09-22] VITALS (13 sets, daily range): BP systolic 130–160; BP diastolic 78–96
--- NOTE | 2017-09-22 07:57 | PN- Housestaff ---
Zulay ROBERTO,Corazon 09/22/17 0757: Subjective Follow-up For: ALCOHOL WITHDRAWAL Subjective: CIWA 2 OVERNIGHT FOR ORIENTATION. PATIENT DOING MUCH BETTER. LESS CONFUSED, NOT AGITATED. NO COMPLAINTS. Review of Systems Constitutional: Reports: no symptoms. Objective Last 24 Hrs of Vital Signs/I&O Vital Signs Date Time Temp Pulse Resp B/P B/P Pulse O2 O2 Flow FiO2 Mean Ox Delivery Rate 09/22 1455 99.2 90 20 130/82 97 Nasal Cannula 09/22 1400 99.8 89 20 160/96 09/22 1245 99.8 89 20 160/96 95 Room Air 09/22 1045 90 134/78 09/22 1000 98.4 90 18 134/78 09/22 0800 98.4 90 18 134/78 09/22 0651 98.4 90 18 134/78 92 09/22 0600 98.4 90 18 134/78 09/22 0400 98.9 85 20 136/84 09/22 0200 98.9 85 20 136/84 09/22 0000 98.9 85 20 136/84 09/21 2200 98.9 85 20 136/84 09/21 2000 98.9 85 18 136/84 09/21 2000 98.9 85 18 136/84 95 Room Air 09/21 1543 98.3 77 20 136/85 93 Room Air Intake & Output 09/22 1600 09/22 0800 09/22 0000 Intake Total 720 480 250 Output Total Balance 720 480 250 Intake, IV 0 10 Intake, Oral 720 480 240 Number 1 0 0 Bowel Movements Physical Exam General Appearance: Alert, Oriented X3, Cooperative, No Acute Distress Skin: No Rashes, No Breakdown, No Significant Lesion HEENT: Atraumatic, EOMI Cardiovascular: Regular Rate, Normal S1, Normal S2, No Murmurs Lungs: Clear to Auscultation, Normal Air Movement Abdomen: Normal Bowel Sounds, Soft, No Tenderness, No Hepatospenomegaly Neurological: Normal Gait, Normal Speech Extremities: No Clubbing, No Edema, Normal Pulses, No Tenderness/Swelling Current Medications: Current Medications Sig/Chetna Start time Last Medication Dose Route Stop Time Status Admin Clonidine 0.1 MG Q8P PRN 09/20 0845 AC PO Enoxaparin Sodium 40 MG DAILY 09/16 1450 AC 09/22 SC 1047 Folic Acid 1 MG DAILY 09/19 1030 AC 09/22 PO 1043 Gabapentin 300 MG 0000,0800,1600 09/19 1600 AC 09/22 PO 0800 Haloperidol 1 MG BID PRN 09/20 1345 AC 09/20 IM 2216 Lorazepam 0.5 MG Q6 09/26 1400 AC PO 09/27 1201 Lorazepam 1 MG Q6 09/25 1400 AC PO 09/26 0601 Lorazepam 1.5 MG Q6 09/24 1400 AC PO 09/25 0601 Lorazepam 2 MG Q6 09/23 1400 AC PO 09/24 0601 Lorazepam 3 MG Q6 09/22 1400 AC 09/22 PO 09/23 0601 1518 Lorazepam 3 MG 5 TIMES A DAY 09/21 1800 DC 09/22 PO 1053 Lorazepam 0 Q1P PRN 09/19 0900 AC 09/20 IV 2155 Multivitamins 1 TAB DAILY 09/19 1030 AC 09/22 PO 1044 Nebivolol 5 MG DAILY 09/16 2200 AC 09/22 PO 1045 Nicotine 14 MG DAILY 09/20 1000 AC 09/22 TOP 1044 Oxybutynin Chloride 5 MG BID 09/17 1232 AC 09/22 PO 1043 Thiamine HCl 100 MG DAILY 09/19 1030 AC 09/22 PO 1044 Last 24 Hrs of Lab/Howie Results Last 24 Hrs of Labs/Mics: Laboratory Tests 09/22/17 0720: Anion Gap 12, Estimated GFR > 60, BUN/Creatinine Ratio 18.3, CBC w Diff NO MAN DIFF REQ, RBC 4.24, MCV 98.5, MCH 32.8 H, MCHC 33.2, RDW 13.7, MPV 8.6, Gran % 63.4, Lymphocytes % 23.3, Monocytes % 11.2 H, Eosinophils % 1.6, Basophils % 0.5, Absolute Granulocytes 6.1, Absolute Lymphocytes 2.2, Absolute Monocytes 1.1 H, Absolute Eosinophils 0.2, Absolute Basophils 0.1 Orders CIWA Score (last 24 hrs): 2 Assessment/Plan Assessment: Patient is a 56-year-old female with significant alcohol history for the past 40 years, active smoker, hypertension, HOCM (follows ), urinary incontinence, varicose veins, presented to [facility] requesting alcohol detox. She never had history of seizures in the past/never admitted for alcohol detoxification. Vital signs at admission are afebrile, heart rate 90, blood pressure 180/90 mmHg , saturating 95% on room air. Physical examination is unremarkable except for abdominal distention with mild hepatomegaly. Tremors present. Labs - white count of 11.2, H&H 15/46, MCV 96. Sodium 142, potassium 3.8, anion gap 18, AST/ALT 243/105 (2 wish to 1), alkaline phosphatase 194. Augmentin 4.4. Toxic screen shows serum alcohol level of 67. UA is pending Admitted to general medicine floor FOR: Alcohol detoxification The patient is making progress, per nursing report of CIWA, is not delirious, nor suicidal. SHE IS LESS AGITATED LAST NIGHT, DID NOT REQUIRE RESTRAINTS OR HALDOL. [facility] protocol with scheduled and as needed ativan dosing. Clonidine for high blood pressure during withdrawal. -CIWA 2 LAST NIGHT FOR ORIENTATION. SIGHS OF WITHDRAWAL ARE LESS AND PER SHE IS BETTER THAN YESTERDAY. -PATIENT HAS GOOD BP CONTROL, 134/78, WILL CONTINUE .1MG Q8. -NOTE THAT CLONIDINE MAY MASK SYMPTOMS OF WITHDRAWAL -CONTINUE ATIVAN DOSING CINV PROTOCOL AND DECREASE ATIVAN FROM 15MG A DAY TO TAPER OF 3MG Q6 FOR TODAY, FOLLOWED BY 2MG Q6 FOR ONE DAY, 1.5MG Q6 ONE DAY, 1 Q6 ONE DAY, AND .5 Q6 ONE DAY. PSYCH WILL FOLLOW. -FOLIC ACID, THIAMINE, MULTIVIT, VIT B -SOCIAL WORK AND PSYCHIATRY FOR OUTPATIENT PLACEMENT. PATIENT THINKING REHAB FACILITY IN [place]. -CONTIUNE HALDOL NEEDED 1MG IM BID PRN Transaminitis AST/ALT induced 1 ratio secondary to significant alcohol consumption. We will trend the LFTs. Right upper quadrant ultrasound SHOWED SIGNIFICANTLY ENLARGED LIVER BUT NO FOCAL LESION OR INTRAHEPATIC DUCTAL DILATATION- EVIDENCE OF HEPATATIS OR FATTY INFILTRATION. NEGATIVE HEPATITIS PANEL LFT ELEVATIONS ARE RESOLVING History of HOCM and HTN Patient was on Bystolic at home, we will continue that for now. History of urinary incontinence Cotinue oxybutynin 10mg ER daily. HYPERKALEMIA, HYPOMAGNESEMIA REPLETE NEEDED TO KEEP K AT LEAST 4 AND MG AT LEAST 2 DVT prophylaxis Subcutaneous Lovenox CODE STATUS Full code Problem List: 1. Alcohol dependency Pain Ratin Pain Location: NA Pain Goal: Remain pain free Pain Plan: NA Tomorrow's Labs & Rationales: NONE Francine Kearney 09/22/17 1459: Attending MD Review Statement Attending Statement Attending MD Statement: examined this patient, discuss w/resident/PA/DOCK CLERK, agreed w/resident/PA/DOCK CLERK, discussed with family, reviewed EMR data (avail), discussed with nursing, discussed with case mgmt, reviewed images, amended to note Attending Assessment/Plan: 56 o/f with pmh of alcohol abuse, hypertension comes with altered mental status 2/2 delirium related to alcohol withdrawal and admitted to inpatient medical services for alcohol withdrawal impending delirium tremens with moderate transaminits. She needed close monitoring in ICU for her DTs. Patient seen/examined bedside. Patient still appears to be deliriuos, bedside Continue on CIWA protocol, taper ativan as per pysch, thiamine, folic acid, bp control. Closely monitor hemodynamics. and [facility] eval f/u. gi/dvt prophylaxis full code. Discussed plan of care with bedside.
[2017-09-22 08:54] LABS: ABSOLUTE BASOPHIL COUNT 0.1 /CUMM (0.0-0.2); ABSOLUTE EOSINOPHIL COUNT 0.2 /CUMM (0.0-0.7); ABSOLUTE GRANULOCYTE CT 6.1 /CUMM (1.4-6.5); ABSOLUTE LYMPH COUNT 2.2 /CUMM (1.2-3.4); ABSOLUTE MONOCYTE COUNT 1.1 /CUMM (0.10-0.60); BASOPHIL % 0.5 % (0.0-2.0); EOSINOPHIL % 1.6 % (0-5); GRANULOCYTE % 63.4 % (42.2-75.2); HEMATOCRIT 41.8 % (37-47); MEAN CORPUSCULAR HGB 32.8 PG (27.0-31.0); MEAN CORPUSCULAR HGB CONC 33.2 G/DL (33.0-37.0); MEAN CORPUSCULAR VOLUME 98.5 FL (81.0-99.0); MEAN PLATELET VOLUME 8.6 FL (7.4-10.4); PLATELET COUNT 259 /CUMM (130-400); RBC DISTRIBUTION WIDTH 13.7 % (11.5-14.5); RED BLOOD CELL CT 4.24 /CUMM (4.20-5.40); WHITE BLOOD CELL COUNT 9.6 /CUMM (4.8-10.8)
--- NOTE | 2017-09-22 10:53 | PN- Psychiatry ---
Assessment/Plan Impression: The patient had an uneventful night and is making good progress in her alcohol detox protocol. [facility] from 0600: 4-9-5-9-5-3-4-4-0-5-0 VS @ 0651: 134/78, 90, 98.4, 18, 92% RA Lorazepam 3 mg PO X 5 doses with no PRN in the last 24 hours. We will continue to advance the lorazepam taper to off. Suggestion: 1. Remaining lorazepam detox taper: Hold for oversedation or respiratory depression; do not hold for sleep. a. Lorazepam 3 mg PO every 6 hours X 4 doses, for a 24 hour total of 12 mg. b. Lorazepam 2 mg PO every 6 hours x 4 doses, for a 24 hour total of 8 mg. c. Lorazepam 1.5 mg PO every 6 hours X 4 doses, for a 24 hour total of 6 mg. d. Lorazepam 1 mg PO every 6 hours x 4 doses, for a 24 hour total of 4 mg. e. Lorazepam 0.5 mg PO every 6 hours X 5 doses. 3. Continue as needed lorazepam, per [facility] protocol. 4. Continue daily thiamine, MVI, folic acid. 5. If severe or violent agitation or aggression, haloperidol 1 mg, PO if possible, IM if unable to take PO, every 12 hours as needed. Before administration, ensure that there are no arrhythmias and QTc is less than 475 mS. Also, monitor and replete potassium and magnesium to the upper portion of the normal range. Hold for respiratory depression or oversedation. We will expect to see the patient again on 09/25/17. Subjective Subjective: Alert, oriented, except of by one month. Denies AH or VH or TH and presents no amando delusions. She denies SI or HI. She denies helplessness, hopelessness, worthlessness or guilty feelings. sh slept well and showered and is feeling much better. Objective Last 24 Hrs of Vital Signs/I&O Vital Signs Date Time Temp Pulse Resp B/P B/P Pulse O2 O2 Flow FiO2 Mean Ox Delivery Rate 09/22 0651 98.4 90 18 134/78 92 09/22 0600 98.4 90 18 134/78 09/22 0400 98.9 85 20 136/84 09/22 0200 98.9 85 20 136/84 09/22 0000 98.9 85 20 136/84 09/21 2200 98.9 85 20 136/84 09/21 1999 98.9 85 18 136/84 09/21 1999 98.9 85 18 136/84 95 Room Air 09/21 1543 98.3 77 20 136/85 93 Room Air Intake & Output 09/22 1600 09/22 0800 09/22 0000 Intake Total 480 250 Output Total Balance 480 250 Intake, IV 0 10 Intake, Oral 480 240 Number 0 0 Bowel Movements Physical Exam: Not performed Physical Exam General Appearance: no apparent distress Neurologic/Psychiatric: awake, alert, oriented x 3 Current Medications: Current Medications Sig/Chetna Start time Last Medication Dose Route Stop Time Status Admin Clonidine 0.1 MG Q8P PRN 09/20 0845 AC PO Enoxaparin Sodium 40 MG DAILY 09/16 1450 AC 09/21 SC 1016 Folic Acid 1 MG DAILY 09/19 1030 AC 09/21 PO 1016 Gabapentin 300 MG 0000,0800,1600 09/19 1600 AC 09/22 PO 0105 Haloperidol 1 MG BID PRN 09/20 1345 AC 09/20 IM 2216 Lorazepam 3 MG 5 TIMES A DAY 09/21 1800 AC 09/22 PO 0537 Lorazepam 3 MG Q4 09/20 1000 DC 09/21 PO 1400 Lorazepam 0 Q1P PRN 09/19 0900 AC 09/20 IV 2155 Multivitamins 1 TAB DAILY 09/19 1030 AC 09/21 PO 1016 Nebivolol 5 MG DAILY 09/16 2200 AC 09/21 PO 1016 Nicotine 14 MG DAILY 09/20 1000 AC 09/21 TOP 1016 Oxybutynin Chloride 5 MG BID 09/17 1232 AC 09/21 PO 2141 Thiamine HCl 100 MG DAILY 09/19 1030 AC 09/21 PO 1016 Results Last 24 Hrs of Labs/Mics: Laboratory Tests 09/22 0720 Chemistry Sodium (137 - 145 mmol/L) 142 Potassium (3.5 - 5.1 mmol/L) 4.0 Chloride (98 - 107 mmol/L) 104 Carbon Dioxide (22 - 30 mmol/L) 26 Anion Gap (5 - 16) 12 BUN (7 - 17 mg/dL) 11 Creatinine (0.5 - 1.0 mg/dL) 0.6 Estimated GFR (>60 ml/min) > 60 BUN/Creatinine Ratio (7 - 25 %) 18.3 Hematology CBC w Diff NO MAN DIFF REQ WBC (4.8 - 10.8 /CUMM) 9.6 RBC (4.20 - 5.40 /CUMM) 4.24 Hgb (12.0 - 16.0 G/DL) 13.9 Hct (37 - 47 %) 41.8 MCV (81.0 - 99.0 FL) 98.5 MCH (27.0 - 31.0 PG) 32.8 H MCHC (33.0 - 37.0 G/DL) 33.2 RDW (11.5 - 14.5 %) 13.7 Plt Count (130 - 400 /CUMM) 259 MPV (7.4 - 10.4 FL) 8.6 Gran % (42.2 - 75.2 %) 63.4 Lymphocytes % (20.5 - 51.1 %) 23.3 Monocytes % (1.7 - 9.3 %) 11.2 H Eosinophils % (0 - 5 %) 1.6 Basophils % (0.0 - 2.0 %) 0.5 Absolute Granulocytes (1.4 - 6.5 /CUMM) 6.1 Absolute Lymphocytes (1.2 - 3.4 /CUMM) 2.2 Absolute Monocytes (0.10 - 0.60 /CUMM) 1.1 H Absolute Eosinophils (0.0 - 0.7 /CUMM) 0.2 Absolute Basophils (0.0 - 0.2 /CUMM) 0.1
[2017-09-23 07:01] VITALS: BP 130/93
[2017-09-23 11:17] VITALS: BP 140/92
--- NOTE | 2017-09-23 13:16 | PN- Att Addend ---
Attending Addendum Attending Brief Note Patient seen and examined, feels well. Feels very calm and peaceful and offers no complaints. Vital Signs Date Time Temp Pulse Resp B/P B/P Pulse O2 O2 Flow FiO2 Mean Ox Delivery Rate 09/23 1117 98.2 78 20 140/92 95 Room Air 09/23 0701 98.7 90 20 130/93 96 Room Air 09/22 2300 99.3 82 18 139/90 95 Room Air 09/22 1800 99.8 89 20 160/96 09/22 1600 99.8 89 20 160/96 09/22 1455 99.2 90 20 130/82 97 Nasal Cannula 09/22 1400 99.8 89 20 160/96 on exam; aox3 nad. cv; s1,s2, rrr resp; clear abd; soft, nt, bs+ ext; no edema no labs. A/P; 56 y/o F with pmh sig for htn, alcohol abuse admitted with acute alcohol intoxication. Continue ativan taper as recommended by psych. Pt on Folate, MVI, Thiamine. Continue rest of meds. DVT px; Lovenox.
[2017-09-23 14:56] VITALS: BP 152/90
--- NOTE | 2017-09-23 20:53 | Discharge Summary ---
Visit Information Visit Dates Admission Date: 09/16/17 Hospital Course Course Attending Physician: Francine Kearney MD Primary Care Physician: Minerva Williamson Allergies: Coded Allergies: Penicillins (Severe, ANAPHYLAXIS 08/10/17) Discharge Instructions General Discharge Information Code Status: Full Code Medications at Discharge Discharge Medications: Continue taking these medications: Nebivolol HCl (Bystolic) 5 MG TABLET 1 Tablet ORAL DAILY Oxybutynin Chloride (Oxybutynin Chloride ER) 10 MG TAB.ER.24 1 Tablet ORAL DAILY Attending MD Review Statement Documenting Attending: Francine Kearney MD
[2017-09-23 21:30] VITALS: BP 136/82
[2017-09-24 06:16] VITALS: BP 180/86
[2017-09-24 06:33] VITALS: BP 118/82
--- NOTE | 2017-09-24 08:26 | PN- Housestaff ---
Zulay ROBERTO,Corazon 09/24/17 0825: Subjective Follow-up For: ALCOHOL WITHDRAWAL Subjective: PATIENT FEELING GOOD TODAY. NO COMPLAINTS. Review of Systems Constitutional: Reports: no symptoms. Objective Last 24 Hrs of Vital Signs/I&O Vital Signs Date Time Temp Pulse Resp B/P B/P Pulse O2 O2 Flow FiO2 Mean Ox Delivery Rate 09/24 2058 99.6 85 18 136/88 95 09/24 1439 98.2 78 20 118/72 94 Room Air 09/24 1102 100 112/80 09/24 0633 118/82 09/24 0616 98.2 73 20 180/86 92 09/24 0505 74 180/86 09/23 2130 99.3 83 18 136/82 93 Room Air Intake & Output 09/24 1600 09/24 0800 09/24 0000 Intake Total 750 118 9205 Output Total 500 Balance 620 240 500 Intake, IV 20 Intake, Oral 858 936 1467 Output, Urine 500 Physical Exam General Appearance: Alert, Oriented X3, Cooperative, No Acute Distress HEENT: Atraumatic, EOMI Cardiovascular: Regular Rate, Normal S1, Normal S2, No Murmurs Lungs: Clear to Auscultation, Normal Air Movement Abdomen: Normal Bowel Sounds, Soft, No Tenderness, No Hepatospenomegaly, No Masses Current Medications: Current Medications Sig/Chetna Start time Last Medication Dose Route Stop Time Status Admin Calcium Carbonate 500 MG DAILY 09/24 1758 AC 09/24 PO 1806 Clonidine 0.1 MG Q8P PRN 09/20 0845 AC 09/24 PO 0505 Enoxaparin Sodium 40 MG DAILY 09/16 1450 AC 09/24 SC 1101 Folic Acid 1 MG DAILY 09/19 1030 AC 09/24 PO 1101 Gabapentin 300 MG 0000,0800,1600 09/19 1600 AC 09/24 PO 1709 Haloperidol 1 MG BID PRN 09/20 1345 AC 09/20 IM 2216 Lorazepam 0.5 MG Q6 09/26 1400 AC PO 09/27 1201 Lorazepam 1 MG Q6 09/25 1400 AC PO 09/26 0601 Lorazepam 1.5 MG Q6 09/24 1400 AC 09/24 PO 09/25 0601 1806 Lorazepam 2 MG Q6 09/23 1400 DC 09/24 PO 09/24 0601 0501 Lorazepam 0 Q1P PRN 09/19 0900 AC 09/22 IV 2230 Multivitamins 1 TAB DAILY 09/19 1030 AC 09/24 PO 1102 Nebivolol 5 MG DAILY 09/16 2200 AC 09/24 PO 1102 Nicotine 14 MG DAILY 09/20 1000 AC 09/24 TOP 1101 Oxybutynin Chloride 5 MG BID 09/17 1232 AC 09/24 PO 1101 Thiamine HCl 100 MG DAILY 09/19 1030 AC 09/24 PO 1101 Last 24 Hrs of Lab/Howie Results Last 24 Hrs of Labs/Mics: Laboratory Tests 09/24/17 0740: Anion Gap 13, Estimated GFR > 60, BUN/Creatinine Ratio 18.3, CBC w Diff NO MAN DIFF REQ, RBC 4.01 L, MCV 96.8, MCH 32.6 H, MCHC 33.7, RDW 13.5, MPV 8.2, Gran % 59.3, Lymphocytes % 28.7, Monocytes % 9.6 H, Eosinophils % 1.7, Basophils % 0.7, Absolute Granulocytes 5.7, Absolute Lymphocytes 2.8, Absolute Monocytes 0.9 H, Absolute Eosinophils 0.2, Absolute Basophils 0.1 Assessment/Plan Assessment: Patient is a 56-year-old female with significant alcohol history for the past 40 years, active smoker, hypertension, HOCM (follows ), urinary incontinence, varicose veins, presented to [place] requesting alcohol detox. She never had history of seizures in the past/never admitted for alcohol detoxification. Vital signs at admission are afebrile, heart rate 90, blood pressure 180/90 mmHg , saturating 95% on room air. Physical examination is unremarkable except for abdominal distention with mild hepatomegaly. Tremors present. Labs - white count of 11.2, H&H 15/46, MCV 96. Sodium 142, potassium 3.8, anion gap 18, AST/ALT 243/105 (2 wish to 1), alkaline phosphatase 194. Augmentin 4.4. Toxic screen shows serum alcohol level of 67. UA is pending Admitted to general medicine floor FOR: Alcohol detoxification The patient is making progress, per nursing report of CIWA, is not delirious, nor suicidal. SHE IS NOT LAST NIGHT, DID NOT REQUIRE RESTRAINTS OR HALDOL. CIWA protocol with scheduled and as needed ativan dosing. Clonidine for high blood pressure during withdrawal. -CIWA 0. -PATIENT HAS GOOD BP CONTROL, WILL CONTINUE .1MG Q8. -NOTE THAT CLONIDINE MAY MASK SYMPTOMS OF WITHDRAWAL -CONTINUE ATIVAN DOSING CIWA PROTOCOL AND DECREASE ATIVAN FROM 15MG A DAY TO TAPER OF 2MG Q6 FOR TODAY, FOLLOWED BY 1.5MG Q6 ONE DAY, 1 Q6 ONE DAY, AND .5 Q6 ONE DAY. PSYCH WILL FOLLOW. -FOLIC ACID, THIAMINE, MULTIVIT, VIT B -SOCIAL WORK AND PSYCHIATRY FOR OUTPATIENT PLACEMENT. PATIENT ACCEPTED AT REHAB FACILITY IN [place]. -CONTIUNE HALDOL NEEDED 1MG IM BID PRN Transaminitis AST/ALT induced 1 ratio secondary to significant alcohol consumption. We will trend the LFTs. Right upper quadrant ultrasound SHOWED SIGNIFICANTLY ENLARGED LIVER BUT NO FOCAL LESION OR INTRAHEPATIC DUCTAL DILATATION- EVIDENCE OF HEPATATIS OR FATTY INFILTRATION. NEGATIVE HEPATITIS PANEL LFT ELEVATIONS ARE RESOLVING History of HOCM and HTN Patient was on Bystolic at home, we will continue that for now. History of urinary incontinence Cotinue oxybutynin 10mg ER daily. HYPERKALEMIA, HYPOMAGNESEMIA REPLETE NEEDED TO KEEP K AT LEAST 4 AND MG AT LEAST 2 DVT prophylaxis Subcutaneous Lovenox CODE STATUS Full code Problem List: 1. Alcohol dependency Pain Ratin Pain Location: NA Pain Goal: Remain pain free Pain Plan: NA Tomorrow's Labs & Rationales: CBC SOLA Good MD,[facility] 09/24/17 1319: Attending MD Review Statement Attending Statement Attending MD Statement: examined this patient, discuss w/resident/PA/EMAIL MARKETING COORDINATOR, agreed w/resident/PA/EMAIL MARKETING COORDINATOR, reviewed EMR data (avail), discussed with nursing, discussed with case mgmt, amended to note Attending Assessment/Plan: Patient seen and examined, feels well. Denies any complaints. Vital Signs Date Time Temp Pulse Resp B/P B/P Pulse O2 O2 Flow FiO2 Mean Ox Delivery Rate 09/24 1102 100 112/80 09/24 0633 118/82 09/24 0616 98.2 73 20 180/86 92 09/24 0505 74 180/86 09/23 2130 99.3 83 18 136/82 93 Room Air 09/23 1456 98.6 74 20 152/90 95 Room Air on exam; aox3, nad. cv; s1,s2, rrr resp; clear abd; soft, nt, bs+ ext; no edema. Laboratory Tests 09/24 0740 Chemistry Sodium (137 - 145 mmol/L) 144 Potassium (3.5 - 5.1 mmol/L) 4.0 Chloride (98 - 107 mmol/L) 104 Carbon Dioxide (22 - 30 mmol/L) 27 Anion Gap (5 - 16) 13 BUN (7 - 17 mg/dL) 11 Creatinine (0.5 - 1.0 mg/dL) 0.6 Estimated GFR (>60 ml/min) > 60 BUN/Creatinine Ratio (7 - 25 %) 18.3 Hematology CBC w Diff NO MAN DIFF REQ WBC (4.8 - 10.8 /CUMM) 9.6 RBC (4.20 - 5.40 /CUMM) 4.01 L Hgb (12.0 - 16.0 G/DL) 13.1 Hct (37 - 47 %) 38.8 MCV (81.0 - 99.0 FL) 96.8 MCH (27.0 - 31.0 PG) 32.6 H MCHC (33.0 - 37.0 G/DL) 33.7 RDW (11.5 - 14.5 %) 13.5 Plt Count (130 - 400 /CUMM) 330 MPV (7.4 - 10.4 FL) 8.2 Gran % (42.2 - 75.2 %) 59.3 Lymphocytes % (20.5 - 51.1 %) 28.7 Monocytes % (1.7 - 9.3 %) 9.6 H Eosinophils % (0 - 5 %) 1.7 Basophils % (0.0 - 2.0 %) 0.7 Absolute Granulocytes (1.4 - 6.5 /CUMM) 5.7 Absolute Lymphocytes (1.2 - 3.4 /CUMM) 2.8 Absolute Monocytes (0.10 - 0.60 /CUMM) 0.9 H Absolute Eosinophils (0.0 - 0.7 /CUMM) 0.2 Absolute Basophils (0.0 - 0.2 /CUMM) 0.1 A/P; 56 y/o F with pmh sig for htn, alcohol abuse admitted with acute alcohol intoxication. Continue ativan taper as recommended by psych. Pt on Folate, MVI, Thiamine. Continue rest of meds. DVT px; Lovenox.
[2017-09-24 08:35] LABS: ABSOLUTE BASOPHIL COUNT 0.1 /CUMM (0.0-0.2); ABSOLUTE EOSINOPHIL COUNT 0.2 /CUMM (0.0-0.7); ABSOLUTE GRANULOCYTE CT 5.7 /CUMM (1.4-6.5); ABSOLUTE LYMPH COUNT 2.8 /CUMM (1.2-3.4); ABSOLUTE MONOCYTE COUNT 0.9 /CUMM (0.10-0.60); BASOPHIL % 0.7 % (0.0-2.0); EOSINOPHIL % 1.7 % (0-5); GRANULOCYTE % 59.3 % (42.2-75.2); HEMATOCRIT 38.8 % (37-47); MEAN CORPUSCULAR HGB 32.6 PG (27.0-31.0); MEAN CORPUSCULAR HGB CONC 33.7 G/DL (33.0-37.0); MEAN CORPUSCULAR VOLUME 96.8 FL (81.0-99.0); MEAN PLATELET VOLUME 8.2 FL (7.4-10.4); PLATELET COUNT 330 /CUMM (130-400); RBC DISTRIBUTION WIDTH 13.5 % (11.5-14.5); RED BLOOD CELL CT 4.01 /CUMM (4.20-5.40); WHITE BLOOD CELL COUNT 9.6 /CUMM (4.8-10.8)
[2017-09-24 14:39] VITALS: BP 118/72
[2017-09-24 20:00] VITALS: BP 136/88
[2017-09-24 20:58] VITALS: BP 136/88
[2017-09-24 22:00] VITALS: BP 136/88
[2017-09-25] VITALS (10 sets, daily range): BP systolic 120–146; BP diastolic 73–90
--- NOTE | 2017-09-25 07:30 | PN- Housestaff ---
Zulay ROBERTO,Corazon 09/25/17 0730: Subjective Follow-up For: aclohol withdrawal Subjective: patient feeling good today. continues to have no complaints. no events. Review of Systems Constitutional: Reports: no symptoms. Objective Last 24 Hrs of Vital Signs/I&O Vital Signs Date Time Temp Pulse Resp B/P B/P Pulse O2 O2 Flow FiO2 Mean Ox Delivery Rate 09/25 1341 98.3 63 18 124/80 93 09/25 1224 98.3 78 18 142/90 94 Room Air 09/25 0848 88 124/90 09/25 0800 Room Air 09/25 0755 99.4 88 18 124/90 99 09/25 0600 98.3 83 20 120/84 09/25 0401 98.3 83 20 120/84 93 09/25 0400 98.5 80 20 146/86 09/25 0200 98.5 80 20 146/86 09/25 0000 98.5 80 20 146/86 09/25 0000 98.5 80 20 146/86 94 09/24 2200 99.6 85 18 136/88 09/24 2058 99.6 85 18 136/88 95 09/24 2000 99.6 85 18 136/88 Intake & Output 09/25 1600 09/25 0800 09/25 0000 Intake Total 600 240 250 Output Total Balance 600 240 250 Intake, IV 0 10 Intake, Oral 600 240 240 Number 1 0 0 Bowel Movements Physical Exam General Appearance: Alert, Oriented X3, Cooperative, No Acute Distress HEENT: Atraumatic, PERRLA Cardiovascular: Regular Rate, Normal S1, Normal S2, No Murmurs Lungs: Clear to Auscultation Abdomen: Normal Bowel Sounds, Soft, No Tenderness, No Hepatospenomegaly Neurological: Normal Speech Current Medications: Current Medications Sig/Chetna Start time Last Medication Dose Route Stop Time Status Admin Calcium Carbonate 500 MG DAILY 09/24 1758 09/25 PO 0848 Clonidine 0.1 MG Q8P PRN 09/20 0845 09/24 PO 0505 Enoxaparin Sodium 40 MG DAILY 09/16 1450 09/25 SC 0849 Folic Acid 1 MG DAILY 09/19 1030 AC 09/25 PO 0848 Gabapentin 300 MG 0000,0800,1600 09/19 1600 09/25 PO 1631 Haloperidol 1 MG BID PRN 01/24 1345 AC 09/20 IM 2216 Ibuprofen 600 MG TID 09/25 1000 DC 09/25 PO 0849 Ibuprofen 600 MG TID PRN 09/25 0915 AC PO Lorazepam 0.5 MG Q6 09/26 1400 AC PO 09/27 1201 Lorazepam 1 MG Q6 09/25 1400 AC 09/25 PO 09/26 0601 1807 Lorazepam 1.5 MG Q6 09/24 1400 DC 09/25 PO 09/25 0601 0554 Lorazepam 0 Q1P PRN 09/19 0900 AC 09/22 IV 2230 Multivitamins 1 TAB DAILY 09/19 1030 AC 09/25 PO 0848 Nebivolol 5 MG DAILY 09/16 2200 AC 09/25 PO 0848 Nicotine 14 MG DAILY 09/20 1000 AC 09/25 TOP 0849 Oxybutynin Chloride 5 MG BID 09/17 1232 AC 09/25 PO 0848 Tetrahydrozoline HCl 1 GTT Q2 HRS NEEDED PRN 09/25 0830 AC 09/25 OPH 1017 Thiamine HCl 100 MG DAILY 09/19 1030 AC 09/25 PO 0848 Assessment/Plan Assessment: Patient is a 56-year-old female with significant alcohol history for the past 40 years, active smoker, hypertension, HOCM (follows ), urinary incontinence, varicose veins, presented to [place] requesting alcohol detox. She never had history of seizures in the past/never admitted for alcohol detoxification. Vital signs at admission are afebrile, heart rate 90, blood pressure 180/90 mmHg , saturating 95% on room air. Physical examination is unremarkable except for abdominal distention with mild hepatomegaly. Tremors present. Labs - white count of 11.2, H&H 15/46, MCV 96. Sodium 142, potassium 3.8, anion gap 18, AST/ALT 243/105 (2 wish to 1), alkaline phosphatase 194. Augmentin 4.4. Toxic screen shows serum alcohol level of 67. UA is pending Admitted to general medicine floor FOR: Alcohol detoxification The patient is making progress, per nursing report of CIWA, is not delirious, nor suicidal. SHE IS NOT AGITATED, DID NOT REQUIRE RESTRAINTS OR HALDOL. CIWA protocol with scheduled and as needed ativan dosing. Clonidine for high blood pressure during withdrawal. -CIWA 3 -PATIENT HAS GOOD BP CONTROL, HAS NOT NEEDED .1MG Q8 -NOTE THAT CLONIDINE MAY MASK SYMPTOMS OF WITHDRAWAL -CONTINUE ATIVAN DOSING CIWA PROTOCOL AND DECREASE ATIVAN FROM 15MG A DAY TO TAPER OF 1.5MG Q6 ONE DAY TO 1 Q6 ONE TODAY, AND .5 Q6 NEXT DAY. PSYCH WILL FOLLOW. -FOLIC ACID, THIAMINE, MULTIVIT, VIT B -SOCIAL WORK AND PSYCHIATRY FOR OUTPATIENT PLACEMENT. PATIENT ACCEPTED AT REHAB FACILITY IN [place]. -CONTIUNE HALDOL NEEDED 1MG IM BID PRN Transaminitis AST/ALT induced 1 ratio secondary to significant alcohol consumption. We will trend the LFTs. Right upper quadrant ultrasound SHOWED SIGNIFICANTLY ENLARGED LIVER BUT NO FOCAL LESION OR INTRAHEPATIC DUCTAL DILATATION- EVIDENCE OF HEPATATIS OR FATTY INFILTRATION. NEGATIVE HEPATITIS PANEL LFT ELEVATIONS ARE RESOLVING History of HOCM and HTN Patient was on Bystolic at home, we will continue that for now. History of urinary incontinence Cotinue oxybutynin 10mg ER daily. HYPERKALEMIA, HYPOMAGNESEMIA REPLETE NEEDED TO KEEP K AT LEAST 4 AND MG AT LEAST 2 DVT prophylaxis Subcutaneous Lovenox CODE STATUS Full code Problem List: 1. Alcohol dependency Pain Ratin Pain Location: NA Pain Goal: Remain pain free Pain Plan: NA Tomorrow's Labs & Rationales: NONE CaioFrancine 09/25/17 1434: Attending MD Review Statement Attending Statement Attending MD Statement: examined this patient, discuss w/resident/PA/SECURITY PROFESSIONAL, agreed w/resident/PA/SECURITY PROFESSIONAL, discussed with family, reviewed EMR data (avail), discussed with nursing, discussed with case mgmt, reviewed images, amended to note Attending Assessment/Plan: 56 o/f with pmh of alcohol abuse, hypertension comes with altered mental status 2/2 delirium related to alcohol withdrawal and admitted to inpatient medical services for alcohol withdrawal impending delirium tremens with moderate transaminits. She needed close monitoring in ICU for her DTs. Continue on CIWA protocol, taper ativan as per pysch, thiamine, folic acid, bp control. Closely monitor hemodynamics. and [facility] eval f/u. gi/dvt prophylaxis full code.
[2017-09-26 07:19] VITALS: BP 126/73
--- NOTE | 2017-09-26 09:06 | PN- Housestaff ---
Zulay ROBERTO,Corazno 09/26/17 0905: Subjective Follow-up For: ALCOHOL WITHDRAWAL Subjective: continues to feel good today, no complaints Review of Systems Constitutional: Reports: no symptoms. Neurological/Psychological: Reports: anxiety. Objective Last 24 Hrs of Vital Signs/I&O Vital Signs Date Time Temp Pulse Resp B/P B/P Pulse O2 O2 Flow FiO2 Mean Ox Delivery Rate 09/26 1323 98.5 75 18 128/90 95 Room Air 09/26 1045 88 140/74 09/26 0719 98.3 76 18 126/73 97 Room Air 09/25 2306 100.5 77 20 132/73 94 Room Air Intake & Output 09/26 1600 09/26 0800 09/26 0000 Intake Total 240 1010 Output Total 900 Balance 240 110 Intake, IV 10 Intake, Oral 240 1000 Output, Urine 900 Physical Exam General Appearance: Alert, Oriented X3, Cooperative, No Acute Distress Cardiovascular: Regular Rate, Normal S1, Normal S2, No Murmurs Lungs: Clear to Auscultation, Normal Air Movement Abdomen: Normal Bowel Sounds, Soft, No Tenderness, No Hepatospenomegaly Neurological: Normal Speech Assessment/Plan Assessment: Patient is a 56-year-old female with significant alcohol history for the past 40 years, active smoker, hypertension, HOCM (follows ), urinary incontinence, varicose veins, presented to [place] requesting alcohol detox. She never had history of seizures in the past/never admitted for alcohol detoxification. Vital signs at admission are afebrile, heart rate 90, blood pressure 180/90 mmHg , saturating 95% on room air. Physical examination is unremarkable except for abdominal distention with mild hepatomegaly. Tremors present. Labs - white count of 11.2, H&H 15/46, MCV 96. Sodium 142, potassium 3.8, anion gap 18, AST/ALT 243/105 (2 wish to 1), alkaline phosphatase 194. Augmentin 4.4. Toxic screen shows serum alcohol level of 67. UA is pending Admitted to general medicine floor FOR: Alcohol detoxification The patient is making progress, per nursing report of CIWA, is not delirious, nor suicidal. SHE IS NOT AGITATED, DID NOT REQUIRE RESTRAINTS OR HALDOL. CIWA protocol with scheduled and as needed ativan dosing. Clonidine for high blood pressure during withdrawal. -CIWA 0 -PATIENT HAS GOOD BP CONTROL, HAS NOT NEEDED .1MG Q8 -NOTE THAT CLONIDINE MAY MASK SYMPTOMS OF WITHDRAWAL -CONTINUE ATIVAN DOSING CIWA PROTOCOL AND DECREASE ATIVAN to .5 Q6h. PSYCH WILL FOLLOW. -FOLIC ACID, THIAMINE, MULTIVIT, VIT B -SOCIAL WORK AND PSYCHIATRY FOR OUTPATIENT PLACEMENT. PATIENT ACCEPTED AT REHAB FACILITY IN [place] AND WILL NEED PAPER SCRIPTS TOMORROW -CONT HALDOL NEEDED 1MG IM BID PRN Transaminitis AST/ALT induced 1 ratio secondary to significant alcohol consumption. We will trend the LFTs. Right upper quadrant ultrasound SHOWED SIGNIFICANTLY ENLARGED LIVER BUT NO FOCAL LESION OR INTRAHEPATIC DUCTAL DILATATION- EVIDENCE OF HEPATATIS OR FATTY INFILTRATION. NEGATIVE HEPATITIS PANEL LFT ELEVATIONS ARE RESOLVING History of HOCM and HTN Patient was on Bystolic at home, we will continue that for now. History of urinary incontinence Cotinue oxybutynin 10mg ER daily. HYPERKALEMIA, HYPOMAGNESEMIA REPLETE NEEDED TO KEEP K AT LEAST 4 AND MG AT LEAST 2 DVT prophylaxis Subcutaneous Lovenox CODE STATUS Full code Problem List: 1. Alcohol dependency Pain Ratin Pain Location: na Pain Goal: Remain pain free Pain Plan: na Tomorrow's Labs & Rationales: cbc bep Francine Kearney 09/26/17 1231: Attending MD Review Statement Attending Statement Attending MD Statement: examined this patient, discuss w/resident/PA/TRUCK LOADER AND UNLOADER, agreed w/resident/PA/TRUCK LOADER AND UNLOADER, discussed with family, reviewed EMR data (avail), discussed with nursing, discussed with case mgmt, reviewed images, amended to note Attending Assessment/Plan: 56 o/f with pmh of alcohol abuse, hypertension comes with altered mental status 2/2 delirium related to alcohol withdrawal and admitted to inpatient medical services for alcohol withdrawal impending delirium tremens with moderate transaminits. She needed close monitoring in ICU for her DTs. Continue on CIWA protocol, taper ativan as per pysch, thiamine, folic acid, bp control. Closely monitor hemodynamics. and pyc eval f/u. Anticipate dc tomorrow at [facility] for alcohol detox and rehab. gi/dvt prophylaxis full code.
[2017-09-26 09:09] LABS: ABSOLUTE BASOPHIL COUNT 0.1 /CUMM (0.0-0.2); ABSOLUTE EOSINOPHIL COUNT 0.2 /CUMM (0.0-0.7); ABSOLUTE GRANULOCYTE CT 5.9 /CUMM (1.4-6.5); ABSOLUTE LYMPH COUNT 2.6 /CUMM (1.2-3.4); ABSOLUTE MONOCYTE COUNT 0.8 /CUMM (0.10-0.60); BASOPHIL % 0.6 % (0.0-2.0); EOSINOPHIL % 1.7 % (0-5); GRANULOCYTE % 61.9 % (42.2-75.2); HEMATOCRIT 39.6 % (37-47); MEAN CORPUSCULAR HGB 32.2 PG (27.0-31.0); MEAN CORPUSCULAR HGB CONC 33.3 G/DL (33.0-37.0); MEAN CORPUSCULAR VOLUME 96.6 FL (81.0-99.0); MEAN PLATELET VOLUME 8.4 FL (7.4-10.4); PLATELET COUNT 392 /CUMM (130-400); RBC DISTRIBUTION WIDTH 13.5 % (11.5-14.5); WHITE BLOOD CELL COUNT 9.5 /CUMM (4.8-10.8)
[2017-09-26 13:23] VITALS: BP 128/90
[2017-09-26 23:35] VITALS: BP 144/84
--- NOTE | 2017-09-27 07:22 | PN- Housestaff ---
Subjective Follow-up For: alcohol withdrawal Subjective: patient in good spirits and ready to go to rehab Review of Systems Constitutional: Reports: no symptoms. Neurological/Psychological: Reports: anxiety. Objective Last 24 Hrs of Vital Signs/I&O Vital Signs Date Time Temp Pulse Resp B/P B/P Pulse O2 O2 Flow FiO2 Mean Ox Delivery Rate 09/27 0954 80 100/60 09/27 0735 99.5 65 18 124/77 98 Room Air 09/26 2335 99.8 90 18 144/84 98 Room Air Intake & Output 09/27 1600 09/27 0800 09/27 0000 Intake Total 240 480 Output Total Balance 240 480 Intake, Oral 240 480 Physical Exam General Appearance: Alert, Oriented X3, Cooperative, No Acute Distress Skin: No Rashes, No Breakdown, No Significant Lesion Skin Temp/Moisture Exam: Warm/Dry Cardiovascular: Regular Rate, Normal S1, Normal S2, No Murmurs Lungs: Clear to Auscultation, Normal Air Movement Abdomen: Normal Bowel Sounds, Soft, No Tenderness, No Hepatospenomegaly, No Masses Neurological: Normal Speech Current Medications: Current Medications Sig/[place] Start time Last Medication Dose Route Stop Time Status Admin Calcium Carbonate 500 MG DAILY 09/24 1758 DCD 09/27 PO 0954 Clonidine 0.1 MG Q8P PRN 09/20 0845 DCD 09/24 PO 0505 Enoxaparin Sodium 40 MG DAILY 09/16 1450 DCD 09/26 SC 1046 Folic Acid 1 MG DAILY 09/19 1030 DCD 09/27 PO 0953 Gabapentin 300 MG 0000,0800,1600 09/19 1600 DCD 09/27 PO 0741 Haloperidol 1 MG BID PRN 09/20 1345 DCD 09/20 IM 2216 Ibuprofen 600 MG .STK-MED ONE 09/27 0521 DC PO 09/27 0522 Ibuprofen 600 MG TID PRN 09/25 0915 DCD 09/27 PO 0522 Lorazepam 0 Q1P PRN 09/26 1630 DCD 09/26 IV 1645 Lorazepam 0.5 MG Q6 09/26 1400 DCD 09/27 PO 09/27 1201 1118 Multivitamins 1 TAB DAILY 09/19 1030 DCD 09/27 PO 0953 Nebivolol 5 MG DAILY 09/16 2200 DCD 09/27 PO 0954 Nicotine 2 MG Q4 09/26 1800 DCD 09/26 PO 2031 Nicotine 14 MG DAILY 09/20 1000 DCD 09/26 TOP 1045 Oxybutynin Chloride 5 MG BID 09/17 1232 DCD 09/27 PO 0954 Patient Medication 1 ED ONE ONE 09/27 1015 DC Teaching ED 09/27 1016 Tetrahydrozoline HCl 1 GTT Q2 HRS NEEDED PRN 09/25 0830 DCD 09/27 OPH 0741 Thiamine HCl 100 MG DAILY 09/19 1030 DCD 09/27 PO 0953 Orders CIWA Score (last 24 hrs): 0 Assessment/Plan Assessment: Patient is a 56-year-old female with significant alcohol history for the past 40 years, active smoker, hypertension, HOCM (follows ), urinary incontinence, varicose veins, presented to [facility] requesting alcohol detox. She never had history of seizures in the past/never admitted for alcohol detoxification. Vital signs at admission are afebrile, heart rate 90, blood pressure 180/90 mmHg , saturating 95% on room air. Physical examination is unremarkable except for abdominal distention with mild hepatomegaly. Tremors present. Labs - white count of 11.2, H&H 15/46, MCV 96. Sodium 142, potassium 3.8, anion gap 18, AST/ALT 243/105 (2 wish to 1), alkaline phosphatase 194. Augmentin 4.4. Toxic screen shows serum alcohol level of 67. UA is pending Admitted to general medicine floor FOR: Alcohol detoxification The patient is making progress, per nursing report of CIWA, is not delirious, nor suicidal. SHE IS NOT AGITATED, DID NOT REQUIRE RESTRAINTS OR HALDOL. CIWA protocol with scheduled and as needed ativan dosing. Clonidine for high blood pressure during withdrawal has not been needed. -CIWA 0 -NOTE THAT CLONIDINE MAY MASK SYMPTOMS OF WITHDRAWAL -CONTINUE ATIVAN DOSING ATIVAN to .5 Q6h 2 more doses today and then STOP. PSYCH WILL FOLLOW. -FOLIC ACID, THIAMINE, MULTIVIT, VIT B while here. -SOCIAL WORK AND PSYCHIATRY FOR OUTPATIENT PLACEMENT. PATIENT ACCEPTED AT REHAB FACILITY IN [place] AND WILL NEED PAPER SCRIPTS for rehab facility -CONT HALDOL NEEDED 1MG IM BID PRN -Of note patient did require prn ativan last night for anxious episode due to heated interaction with . Transaminitis AST/ALT induced 1 ratio secondary to significant alcohol consumption. We will trend the LFTs. Right upper quadrant ultrasound SHOWED SIGNIFICANTLY ENLARGED LIVER BUT NO FOCAL LESION OR INTRAHEPATIC DUCTAL DILATATION- EVIDENCE OF HEPATATIS OR FATTY INFILTRATION. NEGATIVE HEPATITIS PANEL LFT ELEVATIONS ARE RESOLVING History of HOCM and HTN Patient was on Bystolic at home, we will continue that for now. History of urinary incontinence Cotinue oxybutynin 10mg ER daily. HYPERKALEMIA, HYPOMAGNESEMIA REPLETE NEEDED TO KEEP K AT LEAST 4 AND MG AT LEAST 2 DVT prophylaxis Subcutaneous Lovenox CODE STATUS Full code Problem List: 1. Alcohol dependency Pain Ratin Pain Location: na Pain Goal: Remain pain free Pain Plan: na Tomorrow's Labs & Rationales: na
[2017-09-27 07:35] VITALS: BP 124/77
[2017-09-27 09:54] VITALS: BP 100/60
[2017-09-27] MEDS ORDERED: OXYBUTYNIN CHLO10 M1 PO (11:11)
[2017-09-27] MEDS ORDERED: BYSTOLIC5 M1 PO (11:11)
== END 2017-09-27 11:20 | disposition other institution (70) | DRG 897 ==
LOC: ERH 10:22 → 2NA 15:50 → ERHI 15:50 → ENRESERV 15:51 → ENTRNSPT 17:19 → EDTRNSPTSTS 17:23 → 2NA 17:36 → CMPTRNSPT 17:39 → CRI 09-18 22:32 → ENTRNSPT 09-19 11:49 → EDTRNSPT 09-19 12:16 → EDTRNSPTSTS 09-19 12:17 → CMPTRNSPT 09-19 12:41 → 2NB 09-19 12:42 → ENPENDDIS 09-27 11:11 → 2NB 09-27 11:20
PROVIDERS: Emergency Medicine; Internal Medicine; Student in an Organized Health Care Education/Training Program
DX: F10.231 Alcohol dependence with withdrawal delirium (principal); I42.1 Obstructive hypertrophic cardiomyopathy; E83.42 Hypomagnesemia; E87.5 Hyperkalemia; R16.0 Hepatomegaly, not elsewhere classified; I10 Essential (primary) hypertension; R32 Unspecified urinary incontinence; F32.9 Major depressive disorder, single episode, unspecified; I83.90 Asymptomatic varicose veins of unspecified lower extremity; F41.9 Anxiety disorder, unspecified; Z81.1 Family history of alcohol abuse and dependence; F17.210 Nicotine dependence, cigarettes, uncomplicated; Z96.642 Presence of left artificial hip joint; Z88.0 Allergy status to penicillin; R74.0 Nonspecific elevation of levels of transaminase and lactic acid dehydrogenase [LDH]; Y90.3 Blood alcohol level of 60-79 mg/100 ml
CPT/HCPCS: 2NASP; 2NBP; 2NBSP; CCU; 36415; 80307; 82436; 87086; 93005; 93010; 96374; 96375; 99232; 99233; G0480; J1630; J1650; J2060; J3490; J7060; Q2036